=== PATIENT | female | born 2000 | race Caucasian/White ===

== ENCOUNTER 2024-03-30 04:57 | Inpatient (IN) | payer BC, SELFPAY ==
[2024-03-30] VITALS (97 sets, daily range): BP systolic 74–211; BP diastolic 46–189; PULSE 72–291; RESP 14–17; TEMP 36.5–37.2; O2SAT 93–100; BMI 37.8
--- OUTSIDE RECORDS SUMMARY | 2024-03-30 05:02 | XMS_ITS | Continuity of Care Document ---
Author Organization [facility] Address [address] [place] [address] [place] [address] Phone Care Team Providers Care Envelope Fold Operator Name Role Phone Musa Ovalles MD Unavailable Unavailable Allergies, Adverse Reactions, Alerts Substance Reaction Status Criticality No Known Allergies Active No Inform ation Procedures Procedure Date PREV VISIT, NEW, AGE 18-39 Advance Directives Directive Yes / No Effective Date File Name No Information Encounters Encounter Description Practice Location Reason(s) For Visit Diagnoses Date Provider Providers Copied on Encounter [facility], [address] [place], [id number], tel:[phone] [facility] No Information Josr Vigil. [address] [place], [id number], . tel:[phone] PREV VISIT, NEW, AGE 18-39 [facility], [address] [place], [id number], tel:[phone] [facility] physical (chief complaint) Encounter for general adult medical examination without abnormal findings [facility]igil. [address] [facility] [place], [id number], [place]. tel:[phone] Family History Family Member Type Diagnosis Age At Onset Sister Problem PCOS Mother Problem Alive and well Father Problem Alive and well Payers Payer name Insurance type Covered democrat ID Authoriza tion(s) No Information Social History Type Description Quantity Date Captured Comments Alcohol Use Details Unknown Caffeine Use Details Unknown Tobacco Use Status No Information Smoking Status No Information Sex Female Chief Complaint And Reason For Visit No Information Plan Of Treatment Date Type Action Status No Information History Of Present Illness Encounter Date Complaint History Of Prese nt Illness physical Pt needs annual physical. Pt notices some morning nausea and also nausea throughout the day with food without vomiting, worsening with fatigue for about one month. Pt has history of irregular period. Pt missed period for several days and she did home test which were positive x 3. Pt denies any abd pain or bleeding. Pt called and made tara with OB and her appointment is on 02/11/22. Instructions Date Instruction Additional Infor mation No Information Assessments Type Assessment Date No Information
--- OUTSIDE RECORDS SUMMARY | 2024-03-30 05:02 | XMS_ITS | Patient Health Summary ---
Author Organization [facility] Address [address] [place] [address] Care Team Providers Care Lath Hand Name Role Phone Unavailable Primary Care Provider Unavailabl e Note from Formerly named [facility],non-owned Affiliates and Associated Physician Practices is amultiple site organization consisting of ambulatory clinics and hospital sitesin [place], [place], [place] and [place]. This disclosure is being madepursuant to the Care Everywhere program and may not contain all information available regarding this patient. Last updated 17.[facility] [employer] Allergies No known active allergies Social History Tobacco Use Types Packs/Day Years Used Date Smoking Tobacco: Never Assessed Estimated Date of Delivery Comme nts Yes 03/30/2024 Based on last me nstrual period of 06/24/2023 Sex and Gender Information Value Date Recorded Sex Assigned at Not on file Gender Identity Not on file Sexual Orientation Not on file Last Filed Vital Signs Vital Sign Reading Time Taken Comments Blood Pressure 107/67 03/15/2024 10:21 AM DYNAMIC BALANCER SET UP WORKER Pulse 82 03/15/2024 10:21 AM DYNAMIC BALANCER SET UP WORKER Temperature - - Respiratory Rate 16 02/09/2024 10:17 AM DYNAMIC BALANCER SET UP WORKER Oxygen Saturation - - Inhaled Oxygen Concentration - - Weight - - Height - - Body Mass Index - - Procedures * BIOPHYSICAL PROFILE W NST(Performed 03/15/2024) Performed for Poor growth affecting management of mother in second trimester, single or unspecified fetus (HCC), Encounter for ultrasound to assess growth (HCC), 32 weeks gestation of (HCC), Encounter for screening ([facility]) * BIOPHYSICAL PROFILE W NST(Performed 03/08/2024) Performed for Poor growth affecting management of mother in second trimester, single or unspecified fetus (HCC), Encounter for ultrasound to assess growth (HCC), 32 weeks gestation of (HCC), Encounter for screening ([facility]) * BIOPHYSICAL PROFILE W NST(Performed 03/01/2024) Performed for Poor growth affecting management of mother in second trimester, single or unspecified fetus (HCC), Encounter for ultrasound to assess growth (HCC), 32 weeks gestation of (HCC), Encounter for screening (HCC) * BIOPHYSICAL PROFILE W NST(Performed 02/23/2024) Performed for Poor growth affecting management of mother in second trimester, single or unspecified fetus (HCC), Encounter for ultrasound to assess growth (HCC), 32 weeks gestation of (HCC), Encounter for screening (HCC) * BIOPHYSICAL PROFILE W NST(Performed 02/16/2024) Performed for Poor growth affecting management of mother in second trimester, single or unspecified fetus (HCC), Encounter for ultrasound to assess growth (HCC), 32 weeks gestation of (HCC), Encounter for screening (HCC) * BIOPHYSICAL PROFILE W NST(Performed 02/09/2024) Performed for Poor growth affecting management of mother in second trimester, single or unspecified fetus (HCC), Encounter for ultrasound to assess growth (HCC), 32 weeks gestation of (HCC), Encounter for screening (HCC) * SONOGRAM - COMPLETE(Performed 02/02/2024) Performed for Poor growth affecting management of mother in second trimester, single or unspecified fetus (HCC), Encounter for ultrasound to assess growth (HCC), 32 weeks gestation of (HCC) * SONOGRAM - COMPLETE(Performed 01/08/2024) Performed for Poor growth affecting management of mother in second trimester, single or unspecified fetus (HCC), Encounter for follow-up ultrasound of anatomy (HCC), Encounter for ultrasound to assess growth (HCC), 28 weeks gestation of (HCC) * SONOGRAM - COMPLETE(Performed 12/15/2023) Performed for Poor growth affecting management of mother in first trimester, single or unspecified fetus (HCC), Encounter for follow-up ultrasound of anatomy (HCC), Encounter for ultrasound to assess growth (HCC), 24 weeks gestation of (HCC) * SONOGRAM - COMPLETE(Performed 11/24/2023) Performed for Encounter for anatomic survey (HCC), Poor growth affecting management of mother in first trimester, single or unspecified fetus (HCC) Results * BIOPHYSICAL PROFILE W NST (03/15/2024 10:44 AM DYNAMIC BALANCER SET UP WORKER) Only the most recent of6 resultswithin the time period is included. Linked Results Indication ======== SGA/ growth restriction Obesity, Class II History ====== OB History 2. Para 1 [id number] Lab Tests Test Date Result NIPT Low risk Maternal Assessment = Physical Exam Height 152 cm, 5 ft 0 in. Weight 87 kg, 191 lb. Initial weight 87 kg, 191 lb. BMI 37.30 kg/m . Initial BMI 37.30 kg/m . Weight gain 0 kg, 0 lb Method ====== Transabdominal ultrasound examination. View: Sufficient ========= Lucas . Number of fetuses: 1 Dating ====== Date Details Gest. age BRANDEN LMP 06/24/2023 37 w + 6 d 03/30/2024 Stated BRANDEN 37 w + 6 d 03/30/2024 Previous U/S 09/05/2023 GA, GA 9 w + 5 d 37 w + 1 d 04/04/2024 Assigned dating based on the LMP, selected on 02/02/2024 37 w + 6 d 03/30/2024 General Evaluation Cardiac activity present. FHR 142 bpm. Presentation: cephalic Placenta: Placental site: anterior Amniotic Fluid Assessment ===== Amount of AF: normal MVP 5.7 cm. KAROLINE 15.3 cm. Q1 5.7 cm, Q2 2.5 cm, Q3 4.5 cm, Q4 2.7 cm Biophysical Profile 2: breathing movements 2: Gross body movements 2: tone 2: Amniotic fluid volume NST: reactive 10/10 Biophysical profile score Non Stress Test NST interpretation: reactive. Baseline FHR 135 bpm. Baseline variability: moderate. Accelerations: present. Decelerations: absent Biometry BPD 85.7 mm 34w 4d 3% Hadlock HC 322.8 mm 36w 3d 7% Hadlock AC 327.0 mm 36w 4d 31% Hadlock Femur 68.4 mm 35w 1d 4% Hadlock Humerus 55.6 mm 32w 2d <1% Desirae HC / AC 0.99 Weight Calculation: EFW 2,821 g 18% Hadlock EFW (lb,oz) 6 lb 4 oz EFW by Hadlock ([id number]) appropriate Growth Overview = Exam date GA BPD (mm) HC (mm) AC (mm) FL (mm) HL (mm) EFW (g) 12/15/2023 24w 6d 57.6 8% 219.8 8% 191 14% 43.9 24% 40.9 37% 657 14% 01/08/2024 28w 2d 68 13% 256.2 10% 230.9 19% 51.7 18% 47.5 33% 1089 16% 02/02/2024 31w 6d 76.5 12% 292.1 22% 256.3 5% 58.2 8% 48.8 <1% 1548 7% 02/23/2024 34w 6d 82.2 9% 315.4 29% 287.9 8% 64.3 8% 55.5 8% 2142 11% 03/15/2024 37w 6d 85.7 3% 322.8 7% 327 31% 68.4 4% 55.6 <1% 2821 18% Anatomy The following structures appear normal: Abdomen Stomach. Kidneys. Bladder. sex: female. Impression ========= Single live intrauterine at 37w 6d in cephalic presentation The BRANDEN is 03/30/2024 Fetus measuring appropriate for established gestational age (EFW 18%, AC 31%) The amniotic fluid volume appears normal Biophysical profile: 11/15 Follow-up ======== No need for weekly testing with resolved FGR. Resume regular PNC with referring provider. Coding ====== Procedures 34284: [place] [address]: Biophysical Profile W NST [facility] [employer] PACS Anatomical Region Laterality Modality Other 03/15/2024 10:4 4 AM DYNAMIC BALANCER SET UP WORKER R Ronak Shepard MD [facility] ORDERABLES * SONOGRAM - COMPLETE (02/02/2024 11:14 AM DYNAMIC BALANCER SET UP WORKER) Only the most recent of4 resultswithin the time period is included. Linked Results Addendum ========= First trimester US added to dating Indication ======== Completed anatomy Obesity, Class II History ====== OB History 2. Para 1 [id number] Lab Tests Test Date Result NIPT Low risk Maternal Assessment = Physical Exam Height 152 cm, 5 ft 0 in. Initial weight 87 kg, 191 lb. Initial BMI 37.30 kg/m Method ====== Transabdominal ultrasound examination. View: Sufficient ========= Lucas . Number of fetuses: 1 Dating ====== Date Details Gest. age BRANDEN LMP 06/24/2023 31 w + 6 d 03/30/2024 Stated BRANDEN 31 w + 6 d 03/30/2024 Previous U/S 09/05/2023 GA, GA 9 w + 5 d 31 w + 1 d 04/04/2024 Assigned dating based on the LMP, selected on 02/02/2024 31 w + 6 d 03/30/2024 General Evaluation Cardiac activity present. FHR 141 bpm. Presentation: cephalic Placenta: Placental site: anterior Amniotic Fluid Assessment ===== Amount of AF: normal MVP 4.2 cm. KAROLINE 14.5 cm. Q1 3.6 cm, Q2 3.2 cm, Q3 4.2 cm, Q4 3.5 cm Biophysical Profile 2: breathing movements 2: Gross body movements 2: tone 2: Amniotic fluid volume 09/13 Biophysical profile score Biometry BPD 76.5 mm 30w 5d 12% Hadlock HC 292.1 mm 32w 1d 22% Hadlock AC 256.3 mm 29w 6d 5% Hadlock Femur 58.2 mm 30w 3d 8% Hadlock Humerus 48.8 mm 28w 5d <1% Desirae HC / AC 1.14 Weight Calculation: EFW 1,548 g 7% Hadlock EFW (lb,oz) 3 lb 7 oz EFW by Hadlock ([id number]) SGA Growth Overview = Exam date GA BPD (mm) HC (mm) AC (mm) FL (mm) HL (mm) EFW (g) 12/15/2023 24w 6d 57.6 8% 219.8 8% 191 14% 43.9 24% 40.9 37% 657 14% 01/08/2024 28w 2d 68 13% 256.2 10% 230.9 19% 51.7 18% 47.5 33% 1089 16% 02/02/2024 31w 6d 76.5 12% 292.1 22% 256.3 5% 58.2 8% 48.8 <1% 1548 7% Anatomy The following structures appear normal: Abdomen Stomach. Kidneys. Bladder. sex: female. Doppler Umbilical Artery: abnormal, consistent with increased placental resistance PI 1.34 98% Anna S / D 4.34 99% Anna Mid Cerebral Artery: normal PI 2.24 59% Ebbing PS 45.36 cm/s PS 1.03 MoM CPR PI 1.67 6% Ebbing Impression ========= Single, live intrauterine at 31w 6d Amniotic fluid volume: normal size is SGA for the gestational age, with EFW at the 7th percentile. - Interval growth is demonstrated. Biophysical profile: 09/13 Umbilical Artery Doppler is elevated, with diastolic flow in all submitted waveforms. MCA Doppler appears normal Follow-up ======== Follow up ultrasound in 1 week for weekly NST, biophysical profile and Doppler assessment is recommended. Growth ultrasound in 3 weeks. Close surveillance for hypertension. Coding ====== Procedures 92316: [place] [id number]: Biophysical Profile W NST 99421: Umbilical Doppler 65942: MCA Doppler [employer] PACS Anatomical Region Laterality Modality Other 02/02/2024 11:1 4 AM DYNAMIC BALANCER SET UP WORKER R Ronak Shepard MD [facility] ORDERABLES
--- OUTSIDE RECORDS SUMMARY | 2024-03-30 05:02 | XMS_ITS | Data Portability ---
Author Organization [facility] [place] Address [address] [place] [address] Care Team Providers Care Aviation Project Manager Name Role Phone NATHAN HOLLINGSWORTH Primary Care Provider Assessment Encounter Date Assessment Date Assessment LastModified by Organization Details LastModified Time 03/01/2024 03/01/2024 Patient is ___weeks . Discussed plan. Not available 03/01/2024 14:17:58 03/08/2024 03/08/2024 Patient is ___weeks . Discussed plan. Not available 03/08/2024 16:37:12 03/15/2024 03/15/2024 Patient is ___weeks . Discussed plan. Not available 03/15/2024 16:34:17 03/29/2024 03/29/2024 Patient is ___weeks . Discussed plan. Not available 03/29/2024 16:25:20 Plan of Treatment Reminders Order Date Submit Date Provider Last Modified By Organization Details Last Modified Time Details Appointments INDUCTION 2024 05:00A Rolan SHEPARD MD Not available Not available Not available Lab None recorded. Referral None recorded. Procedures None recorded. Surgeries None recorded. Imaging None recorded. Medication Orders None recorded. Patient TargetsNo targets recorded. Patient InstructionsNo instructions recorded. Reason for Referral None Reported. Results Created Date Observation Date Name Description Value Unit Range Abnormal Flag Note LastModifiedBy Organization Detail LastModifiedTime 03/01/19 25 03/01/2024 CULTU RE: GROUP B STREP SCREE N, REFLE X SUSCE PTIBI LITY result report SEE RESULT S BELOW abnormal Test: Cultu re: Group B Strep , Refle x Susce ptibi lity ([facility]/ [facility]/K [facility] ) Speci men Sourc e: Vagin a/Rec kelin Speci men Type: Vagin al/Re ctal Speci men Date: 2024 1543 Resul t Date: 2024 1457 Resul t Statu s: Final resul t Abnor mal: Yes Resul ting Lab: [facility] [address] [facility] [address] [address] [facility] [address] Tel: [phone] CULTU RE ----- ----- ----- --- Light Growt h Strep tococ cus agala ctiae (Grou p B) (Abno rmal) Clind amyci n = resis tant, eryth romyc in = resis tant. Cefaz israel may be used for intra partu m proph ylaxi s in penic illin -silvia rgic women at low risk, and Vanco mycin is recom roly d for women at high risk for anaph ylaxi s. Susce ptibi lity testi ng is not neces gómez for these drugs . Not Available [facility] (Lab) [address], [place], [address], 03/06/2024 16:00:18 02/02/20 24 02/02/2024 US, obste tric, follo w-up No observ ation record ed. [place] [address], [place], [address], 02/05/2024 12:09:30 02/02/20 24 02/02/2024 US, obste tric, follo w-up No observ ation record ed. [email or web address] [facility] [place], [address], 02/08/2024 18:15:58 02/05/20 24 02/02/2024 US, obste tric, follo w-up No observ ation record ed. [email or web address] [place] [address], [place], [address], 02/05/2024 21:38:57 02/08/19 25 02/09/2024 US, obste tric, bioph ysica l profi le + non-s tress test No observ ation record ed. [email or web address] [place] [address], [place], [address], 02/14/2024 16:33:55 02/08/19 25 02/09/2024 US, obste tric, follo w-up No observ ation record ed. [email or web address] [place] [address], [place], [address], 02/14/2024 09:13:01 02/15/19 25 02/16/2024 US, obste tric, follo w-up No observ ation record ed. [email or web address] [place] [address], [place], [address], 02/19/2024 18:14:53 02/18/19 25 02/16/2024 US, obste tric, follo w-up No observ ation record ed. [email or web address] [facility] [address] [place] [address], [address], 02/20/2024 09:23:47 02/22/19 25 02/23/2024 US, obste tric, bioph ysica l profi le + non-s tress test No observ ation record ed. [address] [facility] [address] [place] [address], [address], 02/26/2024 11:42:29 02/22/19 25 02/23/2024 US, obste tric, follo w-up No observ ation record ed. [address] [facility] [address] [place] [address], [address], 02/26/2024 11:43:12 03/01/19 25 03/01/2024 US, obste tric, bioph ysica l profi le + non-s tress test No observ ation record ed. [address] [facility] [address], [address], 03/05/2024 10:12:49 03/01/19 25 03/01/2024 US, obste tric, follo w-up No observ ation record ed. [email or web address] [address], [place], [address], 03/06/2024 22:46:08 03/08/19 25 03/08/2024 US, obste tric, bioph ysica l profi le + non-s tress test No observ ation record ed. [address], [address], 03/12/2024 12:16:39 03/08/19 25 03/08/2024 US, obste tric, follo w-up No observ ation record ed. [email or web address] [facility] [address], [address], 03/12/2024 19:09:39 03/15/19 25 03/15/2024 US, obste tric, bioph ysica l profi le + non-s tress test No observ ation record ed. [address] [facility] [address], [address], 03/18/2024 12:33:41 03/15/19 25 12/15/2023 US, obste tric, follo w-up No observ ation record ed. [email or web address] [address], [address], 03/18/2024 23:11:18 Result Notes None recorded. Problems Name Problem SNOMED Code Status Onset Date Resolution Date Notes Provider Name and Address Organization Details Recorded Time Pregnanc y 09438405 Completed 202209/02/2022 Debra Delgado null, [facility] 4 15:39:48 Rubella non-immu ne 087861949 Completed Sheree Clark null, [facility] 3 13:46:23 Polycyst ic ovary syndrome 940702679 Completed Sheree Clark null, [facility] 3 13:46:23 Pregnanc y 22916719 Active 2023 Debra Delgado null, [facility] 4 15:39:48 Polycyst ic ovary syndrome 919881071 [facility], [facility] 4 15:05:22 Obesity 590065457 Active 2023 37wk weekly antenata l testing Sheree Clark null, [facility] 4 15:06:13 Pneumoni a 908933902 Active 2023 Donna Douglas er null, [facility] 4 13:58:40 Pneumoni a 383523280 Active 2023 Donna Douglas er null, [facility] 4 14:03:52 growth restrict ion 82638689 Active [facility] on January 08, 2024 Dale Shepard MD [address], [place], [address], [facility] 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 15:27:33 Problem Notes None recorded. Procedures Surgical History Date Name Laterality Status Provider Name and Address Organization Details Recorded Time 04/28/19 24 Date of Last Pap Smear completed Debra Delgado [facility] 09/18/2023 15:39:15 02/06/19 06 Tonsillectomy completed Ruth Dugan [facility] 02/11/2022 18:07:12 Imaging Results Imaging Date Name Status LastModified by Organiz ation Details LastModified Time 02/02/2024 US, obstetric, follow-up completed [email or web address] [place] [address], [place], [address], 02/05/2024 12:09:30 02/02/2024 US, obstetric, follow-up completed [facility] [place] [address], [place], [address], 02/08/2024 18:15:58 02/02/2024 US, obstetric, follow-up completed [email or web address] [place] [address], [place], [address], 02/05/2024 21:38:57 02/09/2024 US, obstetric, biophysical profile + non-stress test completed [email or web address] [place] [address], [place], [address], 02/14/2024 16:33:55 02/09/2024 US, obstetric, follow-up completed [email or web address] [facility] [address], [place], [address], 02/14/2024 09:13:01 02/16/2024 US, obstetric, follow-up completed [facility] [address], [place], [address], 02/19/2024 18:14:53 02/16/2024 US, obstetric, follow-up completed [email or web address] [facility] [address] [place] [address], [address], 02/20/2024 09:23:47 02/23/2024 US, obstetric, biophysical profile + non-stress test completed [email or web address] [facility] [address], [address], 02/26/2024 11:42:29 02/23/2024 US, obstetric, follow-up completed [facility] [address], [address], 02/26/2024 11:43:12 03/01/2024 US, obstetric, biophysical profile + non-stress test completed [email or web address] [facility] [address], [address], 03/05/2024 10:12:49 03/01/2024 US, obstetric, follow-up completed [email or web address] [address], [address], 03/06/2024 22:46:08 03/08/2024 US, obstetric, biophysical profile + non-stress test completed [email or web address] [facility] [address], [address], 03/12/2024 12:16:39 03/08/2024 US, obstetric, follow-up completed [email or web address] [facility] [address], [address], 03/12/2024 19:09:39 03/15/2024 US, obstetric, biophysical profile + non-stress test completed [facility] [address], [address], 03/18/2024 12:33:41 12/15/2023 US, obstetric, follow-up completed [email or web address] [facility] [address] [place], [address], 03/18/2024 23:11:18 Procedure Notes None recorded. Medical Equipment None Reported. Allergies No known drug allergies Medications Name Sig Start Date Stop Date Status Note LastModified by Organization Details LastModified Time amoxicillin 875 mg tablet TAKE 1 TABLET BY MOUTH EVERY 12 HOURS FOR 10 DAYS 11/16 completed Not Available Not Available Not Available ondansetron 4 mg disintegrat ing tablet DISSOLVE 1 TABLET ON THE TONGUE EVERY 4 TO 6 HOURS NEEDED 04/27 completed Not Available Not Available Not Available 02/25 (28) 1 mg-20 mcg (21)/75 mg (7) tablet TAKE 1 TABLET BY MOUTH EVERY DAY 09/04 completed Not Available Not Available Not Available active Not Available Not Avai lable Not Available Zyrtec active Not Available Not Availa ble Not Available Robitussin Cough and Cold CF active Not Available Not Available Not Available Vitals Date Recorded Body height Body mass index (BMI) Body weight Systolic blood pressure Diastolic blood pressure Provider Name and Address Organization Details Last Updated DateTime 03/01/2024 152.4 cm 38.3 kg/m2 05221.1 g 132 mm[Hg] 77 mm[Hg] [facility] 14:19:03 Date Recorded Body height Body mass index (BMI) Body weight Systolic blood pressure Diastolic blood pressure Provider Name and Address Organization Details Last Updated DateTime 03/08/2024 152.4 cm 37.5 kg/m2 77623.74 g 112 mm[Hg] 70 mm[Hg] [facility] 16:38:58 Date Recorded Body weight Systolic blood pressure Diastolic blood pressure Provider Name and Address Organization Details Last Updated DateTime 03/15/2024 97978.7350 4 g 111 mm[Hg] 71 mm[Hg] [facility] 03/15/2024 16:35:07 Date Recorded Body height Body mass index (BMI) Body weight Systolic blood pressure Diastolic blood pressure Provider Name and Address Organization Details Last Updated DateTime 03/18/2024 152.4 cm 38.1 kg/m2 36218.51 g 116 mm[Hg] 73 mm[Hg] Rin Saini [facility] 15:13:20 Date Recorded Body weight Systolic blood pressure Diastolic blood pressure Provider Name and Address Organization Details Last Updated DateTime 03/29/2024 27688.3274 1 g 128 mm[Hg] 74 mm[Hg] Debra Danny [facility] 03/29/2024 16:25:55 Social History Question Answer Notes LastModified by Organizat ion Details LastModified Time Tobacco Smoking Status Never Smoker Maria L Chaparro liz, [facility] 09/29/2022 10:33:26 What Is Your Level Of Alcohol Consumption? None [email or web address] Information not available 02/11/2022 If You Are , What Was Your Level Of Alcohol Consumption Prior To ? Occasional [email or web address] Information not available 09/29/2022 Are You Blind Or Do You Have Difficulty Seeing? No [email or web address] Information not available 02/11/2022 What Is Your Level Of Caffeine Consumption? Occasional [email or web address] Information not available 02/11/2022 How Much Tobacco Do You Chew? None Information not available 04/27/2022 In The 14 Days Before Symptom Onset, Have You Had Close Contact With A Laboratory-confir med COVID-19 While That Case Was Ill? No [email or web address] Information not available 02/11/2022 In The 14 Days Before Symptom Onset, Have You Had Close Contact With A Person Who Is Under Investigation For COVID-19 While That Person Was Ill? No [email or web address] Information not available 02/11/2022 Have You Been To An Area Known To Be High Risk For COVID-19? No [email or web address] Information not available 02/11/2022 Are You Deaf Or Do You Have Serious Difficulty Hearing? No [email or web address] Information not available 02/11/2022 What Type Of Diet Are You Following? REGULAR [email or web address] Information not available 02/11/2022 Do You Or Have You Ever Used E-cigarettes Or Vape? Former User Of Electronic Cigarettes [email or web address] Information not available 09/29/2022 What Is The Highest Grade Or Level Of School You Have Completed Or The Highest Degree You Have Received? 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 No Information not available 04/27/2022 Do You Use Protection During Sex? No Information not available 04/27/2022 Do You Use Your Seat Belt Or Car Seat Routinely? Yes [email or web address] Information not available 02/11/2022 Do You Have Smoke And Carbon Monoxide Detectors In Your Home? Yes [email or web address] Information not available 02/11/2022 How Much Tobacco Do You Smoke? No Information not available 04/27/2022 Do You Feel Stressed (tense, Restless, Nervous, Or Anxious, Or Unable To Sleep At Night)? [id number] [email or web address] Information not available 02/11/2022 Do You Use Any Illicit Or Recreational Drugs? No [email or web address] Information not available 02/11/2022 Do You Use Sunscreen Routinely? Yes Information not available 02/11/2022 Has Tobacco Cessation Counseling Been Provided? No [email or web address] Information not available 09/29/2022 Have You Used IV Drugs? No Information not available 04/27/2022 Do You Or Have You Ever Used Any Other Forms Of Tobacco Or Nicotine? Yes [email or web address] Information not available 09/29/2022 Sex: Unknown Functional Status Question Answer Note LastModified by Organizat ion Details LastModified Time Do you have difficulty walking or climbing stairs? No [email or web address] Information not available 09/29/2022 Are you able to walk? YESWOREST [email or web address] Information not available 02/11/2022 Are you able to care for yourself? Yes [email or web address] Information not available 09/29/2022 Do you have difficulty dressing or bathing? No [email or web address] Information not available 09/29/2022 What is your exercise level? Occasional [email or web address] Information not available 02/11/2022 Mental Status None recorded. Family History Relationship Description Onset Age of this Age Resolved Age Notes LastModified by Organization Details LastModified Time Sister Cyst of ovary [email or web address] Not available 02/11 18:05:56 Sister Polycystic ovary syndrome Not available 02/11 18:06:07 Medical History Condition Response Allergies (Food, seasonal, environmental ) Y Other N Drug/Latex Allergies/Reactions N Blood Transfusion N Breast Cancer N Dermatologic Disorders N Lung Disease N Defects or Inherited Disease N Breast Problem N Gestational Diabetes N Hematologic disorders N Anesthesia Complications N History of STI N Deep Vein Thrombosis N Polycystic ovary syndrome Y Anxiety Disorder N Autoimmune disease N Arthritis N Polyps N Infertility N Acid Reflux (GERD) N History of abnormal pap N Cancer N Varicosities N Stroke N Neurologic/Epilepsy N Endometriosis N High Cholesterol N Fibromyalgia N Headaches N Kidney Disease N Heart Problems N Thyroid Problems N Kidney or Bladder Problems N GI Problems N Eating Disorder N Anemia N Art (IVF or FET) N Psychiatric Illness N Ovarian Cancer N Diabetes N Pulmonary (TB, Asthma) N Hepatitis/Liver Disease N No Past Medical History N Eczema N Urinary Tract Infection N Abuse/Domestic Violence N Asthma N Trauma/Violence N Depression/ depression N Heart Disease N Pre-Eclampsia N Hypertension N Osteoporosis N Thrombophilias N Gynecological History Statement/Question Response Abnormal Pap N Flow Moderate Date of Last Mammogram Date of LMP 06/24/2023 Was last menstrual period normal Y STIs/STDs N HPV Vaccine N Current Control Method Are cycles usually normal Y Sexually Active? Y Menses Monthly Y Date of DEXA bone scan Age of first menstrual cycle 9 Date of Last Pap Smear 04/28/2023 Sexual Problems? N LMP Definite Obstetrics History GPAL:G 2 P 1 0 0 1 Type Value Full Term 1 Living 1 Total 2 Past Encounters Encounter ID Performer Location Encounter Start Date Encounter Closed Date Diagnosis/Indication Diagnosis SNOMED-CT Code Diagnosis ICD10 Code Diagnosis Note [id number] Isis Ryan [place] [address] [address] 02/11/2022 15:57:33 02/11/2022 16:38:16 Uncertain viability of 787506520 O36.80X0 Z3A.11 [id number] Maile Villa CNM [place] [address] [address] 02/11/2022 15:57:47 02/14/2022 17:05:03 Amenorrhea 23774707 N91.2 Gynecologi c examination 95850781 Z01.419 [id number] Isis Ryan [place] [address],[place] [address] 02/17/2022 12:21:28 02/17/2022 14:17:55 screening 081430499 Z36.82 [id number] Elizabet Rainey MD [place] [address],[place] [address] 02/25/2022 10:59:54 03/02/2022 15:30:47 Routine care 939447279 Z34.91 [id number] Elizabet Rainey MD [place] [address],[place] [address] 03/25/2022 11:37:17 03/25/2022 12:32:57 Routine care 554056417 Z34.91 [id number] [facility] [address],[place] [address] 04/27/2022 14:20:13 04/27/2022 15:32:38 screening for malformation 691357379 Z36.3 [id number] Dale Shepard MD [place] [address],[place] [address] 04/27/2022 14:20:39 04/27/2022 16:35:12 Routine care 689552431 Z34.02 [id number] Isis Ryan [place] [address],[place] [address] 05/26/2022 11:26:03 05/26/2022 12:51:47 screening 238938983 Z36.2 Z3A.26 [id number] Dale Shepard MD [place] [address],[place] [address] 05/26/2022 11:27:54 05/26/2022 14:45:37 Routine care 648185392 Z34.02 [id number] Dale Shepard MD [place] [address],[place] [address] 06/09/2022 10:12:23 06/09/2022 10:52:55 Routine care 774115877 Z34.02 [id number] Maile Villa [facility] [address],[place] [address] 06/22/2022 15:48:02 06/22/2022 16:08:21 Routine care 807192776 Z34.93 [id number] Maile Villa [facility] [address],[place] [address] 07/08/2022 11:37:56 07/08/2022 12:22:00 Routine care 149055963 Z34.93 [id number] Isis Ryan [place] [address],[place] [address] 07/22/2022 11:47:30 07/22/2022 14:34:06 Uterine size for dates discrepancy 674397428 O26.849 Z3A.34 [id number] Dale Shepard MD [place] [address],[place] [address] 07/22/2022 11:48:43 07/23/2022 11:52:58 [id number] Dale Shepard MD [place] [address],[place] [address] 08/04/2022 09:41:19 08/04/2022 10:49:13 Routine care 136265040 Z34.02 [id number] Dale Shepard MD [place] [address],[place] [address] 08/11/2022 09:24:49 08/11/2022 11:17:36 Routine care 725105756 Z34.02 [id number] MD Aleida Humphreys [address],[place] [address] 08/18/2022 12:36:04 08/18/2022 13:45:18 Routine care 842019057 Z34.02 [id number] MD Aleida Humphreys [address],[place] [address] 08/25/2022 14:19:48 08/25/2022 14:47:14 Routine care 108352134 Z34.02 [id number] Dale Shepard MD [place] [address],[place] [address] 09/29/2022 10:33:20 09/29/2022 11:11:07 state 74149057 Z39.2 21-year-ol d who presents for follow-up. She has no complaints . Her baby is doing well. Her mood is reasonably good. Her bleeding has stopped. They have not had sex she is bottle-fee ding and wants to start oral contracept lea pills. She was given a prescripti on and instructio ns. She will follow-up 2 months for well-woman exam. [id number] Dale Shepard MD [place] [address],[place] [address] 04/28/2023 15:00:43 04/28/2023 17:03:32 Gynecologic examination 90541637 Z01.419 Z11.3 Z11.8 Annual gynecologi vincent exam performed. Patient will come back in a year unless there are new symptoms. Suggest Calcium with Vitamin D if not eating in diet. Patient advised to get annual flu shot. Recommend yearly physicals and preform monthly breast exams. Genetic testing is available for patients with family history of cancer. Engage in safe sexual practices, use condoms. Encouraged to have daily exercise. Avoid tobacco and illicit drugs, moderation of alcohol. If BMI greater than 25 dietary consult advised. If you have any questions please call or email. [id number] Elsa To [place] [address],[place] [address] 09/05/2023 09:58:36 09/05/2023 10:36:57 [id number] GUZMAN HALL MD [place] [address],[place] [address] 09/05/2023 09:59:38 09/05/2023 11:01:48 test positive 770674214 Z32.01 1. Exam today within normal limits.2. Ultrasound today confirms GA and viability. EDC . GC/Clamydi a testing done: will f/u as indicated. Pap smear up to date.4. ACOG guidelines and plan of care for reviewed with patient. All questions answered.5 . Return to office at 12 weeks for new OB visit6. Will need new OB labs at next visit.7. Genetic screening: desires, will draw today. [facility] [address],[place] [address] 09/18/2023 14:37:03 09/18/2023 15:27:53 screening 126745403 Z36.82 Z3A.12 Dale Shepard MD [place] [address],[place] [address] 09/18/2023 14:37:27 09/18/2023 16:21:08 Gestation period, 12 weeks 75891482 Z3A.12 Routine an tenatal care 041534470 Z34.02 [id number] Dale Shepard MD [place] [address],[place] [address] 10/16/2023 10:07:33 10/16/2023 11:29:37 Routine care 634574645 Z34.02 [id number] [facility] [address],[place] [address] 11/17/2023 08:57:25 11/17/2023 10:13:27 screening for malformation 835261699 Z36.3 Z3A.20 [id number] Dale Shepard MD [place] [address],[place] [address] 11/17/2023 08:58:33 11/17/2023 11:50:01 Routine care 585369603 Z34.02 [id number] MD Aleida Humphreys [address],[place] [address] 12/13/2023 17:14:01 12/14/2023 10:53:56 Routine care 943854599 Z34.02 [id number] MD Aleida Humphreys [address],[place] [address] 01/08/2024 16:48:44 01/08/2024 17:28:50 Routine care 531128072 Z34.02 [id number] MD Aleida Humphreys [address],[place] [address] 01/26/2024 15:50:07 01/26/2024 17:13:00 Routine care 817568374 Z34.02 [id number] MD Aleida Humphreys [address],[place] [address] 02/09/2024 15:27:54 02/09/2024 17:00:05 Routine care 183125762 Z34.02 [id number] MD Aleida Humphreys [address],[place] [address] 02/23/2024 14:13:38 02/23/2024 15:07:26 Routine care 748842192 Z34.02 [id number] Dale Shepard MD [place] [address],[place] [address] 03/01/2024 13:52:48 03/01/2024 15:36:16 Routine care 576605259 Z34.02 [id number] Dale Shepard MD [place] [address],[place] [address] 03/08/2024 16:05:13 03/11/2024 07:40:49 Routine care 489755133 Z34.02 [id number] Dale Shepard MD [place] [address],[place] [address] 03/15/2024 15:47:27 03/18/2024 11:44:44 Routine care 033426791 Z34.02 [id number] GUZMAN HALL MD [place] [address],[place] [address] 03/18/2024 15:07:11 03/18/2024 15:24:19 Routine care 000490255 Z34.83 [id number] Dale Shepard MD [place] [address] [address] 03/29/2024 15:34:54 03/29/2024 17:01:01 Routine care 296821628 Z34.02 Health Concerns Section Related Observation LastModified by Organization Detai ls LastModified Time None Recorded Concern Status LastModified by Organization Details LastModified Time None Recorded Advance Directives Directive None Recorded Payers Encounter Date Sequence Insurance Name Policy Number Policy Maldonado Covered Member ID Maldonado Member ID Guarantor Name 03/01/2024 1 [place] [id number] J José Luis J Glauber [id number] José Luis Glauber 03/08/2024 1 [place] [id number] J José Luis J Glauber [id number] 15 José Luis Glauber 03/15/2024 1 [place]) [id number] J José Luis J Glauber [id number] 15 José Luis Glauber 03/18/2024 1 [place]) [id number] J José Luis J Glauber [id number] 15 José Luis Glauber 03/29/2024 1 [place] [id number] J José Luis Del Glauber [id number] 15 José Luis Glauber OBGyn Episode Ob Episode Information Episode Created Date Number of Fetuses Patient Bloodtype Patient rh Status Prepregnancy Weight lbs Domestic Partner Domestic Partner Phone Father Name [employer]ator [employer] Status 02/25/19 23 1 A Positive 167 Berny Iqbal [phone] Berny Iqbal CLOSED Fetus Data First Name Last Name Admitted to NICU Weight (g) Sex Living Outcome Pediatric Complications Fetus ID Race Codes Race Delivery Type 3316.89 15 M true Full Term [id number] Vaginal Delivery Problems Problem Notes does not plan circumcision Problem Name Start Date End Date Resolution Snomed Code Not e Rubella non-immune [id number] Polycystic ovary syndrome [id number] Tito Calculation Initial Tito Date Initial Exam Date Initial Exam Provider Initial Ultrasound Date Last Menstrual Period Date Ultra Sound Weeks Gestation 08/30/2022 02/25/2022 02/11/2022 11/23/2021 11 Eighteen To Twenty Week Tito Update Ultra Sound Date Fundal Height At Umbil Quickening Date Ultra Sound Latest Weeks Gestation Final Tito Confirmed By Final Tito Confirmed Date Final Tito Date Ultra Sound Latest Days Gestation 0 [email or web address] 02/25/2022 08/31/19 23 0 Pre-ketan Flowsheet Flowsheet Date 02/25/2022 Hopkins Score Blood Edema Fundus Height Fundus Units Glucose Ketones Leukocytes Nitrite Labor Signs Protein Cervic Dilation Cervic Effacement Cervic Station neg none none trace Type Weight in lbs Pre/Post Dialysis Refused Weight 171.253535814623 BP Diastolic BP Location Tested BP Systolic BP Type 83 137 Fetus Heart Rate Present Fetus Movement A No Comments José Luis is a 21yo G1 at 13.3 for care. Her history is noncontributory. Already did labs and NIPT pending. She will get a flu shot and we discussed the benefits of a COVID booster. ROutine care. Flowsheet Date 03/25/2022 Hopkins Score Blood Edema Fundus Height Fundus Units Glucose Ketones Leukocytes Nitrite Labor Signs Protein Cervic Dilation Cervic Effacement Cervic Station none none trace Type Weight in lbs Pre/Post Dialysis Refused Weight 174.77470537877 BP Diastolic BP Location Tested BP Systolic BP Type 81 141 80 140 Fetus Heart Rate Present A 150 Fetus Movement A Yes Comments Doing well, no concerns. Oneyda sorto US next visit. Possibly some prehypertension, will monitor. Flowsheet Date 04/27/2022 Hopkins Score Blood Edema Fundus Height Fundus Units Glucose Ketones Leukocytes Nitrite Labor Signs Protein Cervic Dilation Cervic Effacement Cervic Station Type Weight in lbs Pre/Post Dialysis Refused BP Diastolic BP Location Tested BP Systolic BP Type Fetus Heart Rate Present Fetus Movement Comments Flowsheet Date 04/27/2022 Hopkins Score Blood Edema Fundus Height Fundus Units Glucose Ketones Leukocytes Nitrite Labor Signs Protein Cervic Dilation Cervic Effacement Cervic Station 22 Type Weight in lbs Pre/Post Dialysis Refused Weight 182.323793671402 BP Diastolic BP Location Tested BP Systolic BP Type 71 R arm 109 sitting Fetus Heart Rate Present A 145 Fetus Movement Comments no complaints, no problems, incomplete anatomy, some low back pain, mild, given recommendations. Flowsheet Date 05/26/2022 Hopkins Score Blood Edema Fundus Height Fundus Units Glucose Ketones Leukocytes Nitrite Labor Signs Protein Cervic Dilation Cervic Effacement Cervic Station Type Weight in lbs Pre/Post Dialysis Refused BP Diastolic BP Location Tested BP Systolic BP Type Fetus Heart Rate Present Fetus Movement Comments Flowsheet Date 05/26/2022 Hopkins Score Blood Edema Fundus Height Fundus Units Glucose Ketones Leukocytes Nitrite Labor Signs Protein Cervic Dilation Cervic Effacement Cervic Station 26 Type Weight in lbs Pre/Post Dialysis Refused Weight 186.918691596160 BP Diastolic BP Location Tested BP Systolic BP Type 71 R arm 118 sitting Fetus Heart Rate Present A 145 Fetus Movement A Yes Comments no complaints, no problems, routine care completed anatomy today Flowsheet Date 06/09/2022 Hopkins Score Blood Edema Fundus Height Fundus Units Glucose Ketones Leukocytes Nitrite Labor Signs Protein Cervic Dilation Cervic Effacement Cervic Station 28 Type Weight in lbs Pre/Post Dialysis Refused Weight 188.270235761341 BP Diastolic BP Location Tested BP Systolic BP Type 76 R arm 122 sitting Fetus Heart Rate Present A 145 Fetus Movement A Yes Comments no complaints, no problems, 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 reviewed precautions, doing well, baby shower today, +FM f/u 2 weeks Flowsheet Date 07/08/2022 Hopkins Score Blood Edema Fundus Height Fundus Units Glucose Ketones Leukocytes Nitrite Labor Signs Protein Cervic Dilation Cervic Effacement Cervic Station neg none 31 none trace Type Weight in lbs Pre/Post Dialysis Refused Weight 190.280952701619 BP Diastolic BP Location Tested BP Systolic BP Type 75 127 Fetus Heart Rate Present A 132 Present Fetus Movement A Yes Comments doing well, no complaints, h as preadmit scheduled. precautions reviewed Flowsheet Date 07/22/2022 Hopkins Score Blood Edema Fundus Height Fundus Units Glucose Ketones Leukocytes Nitrite Labor Signs Protein Cervic Dilation Cervic Effacement Cervic Station Type Weight in lbs Pre/Post Dialysis Refused BP Diastolic BP Location Tested BP Systolic BP Type Fetus Heart Rate Present Fetus Movement Comments Flowsheet Date 07/22/2022 Hopkins Score Blood Edema Fundus Height Fundus Units Glucose Ketones Leukocytes Nitrite Labor Signs Protein Cervic Dilation Cervic Effacement Cervic Station Type Weight in lbs Pre/Post Dialysis Refused Weight 192.306056562084 BP Diastolic BP Location Tested BP Systolic BP Type 75 R arm 121 sitting Fetus Heart Rate Present Fetus Movement A Yes Comments Flowsheet Date 08/04/2022 Hopkins Score Blood Edema Fundus Height Fundus Units Glucose Ketones Leukocytes Nitrite Labor Signs Protein Cervic Dilation Cervic Effacement Cervic Station 0cm 0% -4 Type Weight in lbs Pre/Post Dialysis Refused Weight 196.291236307445 BP Diastolic BP Location Tested BP Systolic BP Type 74 R arm 123 sitting Fetus Heart Rate Present A 136 Fetus Movement A Yes Comments Very high, not engaged, Flowsheet Date 08/11/2022 Hopkins Score Blood Edema Fundus Height Fundus Units Glucose Ketones Leukocytes Nitrite Labor Signs Protein Cervic Dilation Cervic Effacement Cervic Station 37 none trace Type Weight in lbs Pre/Post Dialysis Refused Weight 198.534716677275 BP Diastolic BP Location Tested BP Systolic BP Type 80 R arm 134 sitting Fetus Heart Rate Present A 152 Fetus Movement Comments no complaints, no problems, routine care Flowsheet Date 08/18/2022 Hopkins Score Blood Edema Fundus Height Fundus Units Glucose Ketones Leukocytes Nitrite Labor Signs Protein Cervic Dilation Cervic Effacement Cervic Station 38 none trace 1cm 50% -3 Type Weight in lbs Pre/Post Dialysis Refused Weight 197.014744159847 BP Diastolic BP Location Tested BP Systolic BP Type 78 R arm 120 sitting Fetus Heart Rate Present A 145 Fetus Movement Comments no complaints, no problems, routine care, considering induction next week Flowsheet Date 08/25/2022 Hopkins Score Blood Edema Fundus Height Fundus Units Glucose Ketones Leukocytes Nitrite Labor Signs Protein Cervic Dilation Cervic Effacement Cervic Station 39 Type Weight in lbs Pre/Post Dialysis Refused Weight 201.934609427383 BP Diastolic BP Location Tested BP Systolic BP Type 83 R arm 127 sitting Fetus Heart Rate Present A 145 Fetus Movement A Yes Comments no complaints, no problems, routine care, to induce in 6 days. Menstrual History Last Menstrual Date Menses Monthly On Bcp Conception Prior Menses Frequency Hcg Plus Date Menarche Onset Age 1011/23/2021 Genetic Screening And Infection History Question Response Note Mental Retardation/Autism false Patient's Age Will Be 35 Years Or Older At Estim ated Date of Delivery false Thalassemia (Pakistani, Yemeni, Mediterranean, Or Background): MCV < 80 false Neural Tube Defect (Meningomyelocele, Spina Bifi da, Or Anencephaly) false Congenital Heart Defect false Down Syndrome false Sacha-Sachs (eg, Uatsdin, Cajun, Chilean-Latvian) f alse Lucius Disease false Sickle Cell Disease Or Trait () false Hemophilia Or Other Blood Disorders false Muscular Dystrophy false Cystic Fibrosis false Austin's Chorea false Intellectual Disability/Autism false If Yes, Was Person Tested For Fragile X? false Other Inherited Genetic Or Chromosomal Disorder false Maternal Metabolic Disorder (eg, Type 1 Diabetes , PKU) false Patient Or Baby's Father Had A Child With Defects Not Listed Above false Recurrent Loss, Or A Stillbirth false Medications (including Suppl ements, Vitamins, Herbs, OTC Drugs), Illicit/Recreational Drugs, Alcohol false If Yes, Agent(s) And Strength/Dosage false Any Other Genetic History false Live With Someone With TB Or Exposed To TB false Patient Or Partner Has History Of Genital Herpes false Rash Or Viral Illness Since Last Menstrual Perio d false History Of STD, Gonorrhea, Chlamydia, HPV, Syphi lis false Other Infection History false History of HIV false History of Hepatitis false Prior GBS-infected child false Hemoglobinopathy Or Carrier false Other Structural Defect false Recent Travel History Outside of Country false Delivery Information Delivery Date Delivery Type Labor Anesthesia Weeks Gestation Incision Type Labor Labor Length Hrs Delivered By Post Complications Tubal Sterilization Discharge Date Comments 3 Induce d [facility]-Ep id[facility] 40.2 false Dale Shepard MD PCOS Discharge Information Feeding Method Contraceptive Method Maternal HG B and HCT Levels Ob Episode Information Episode Created Date Number of Fetuses Patient Bloodtype Patient rh Status Prepregnancy Weight lbs Domestic Partner Domestic Partner Phone Father Name [employer]ator [employer] Status 09/18/19 24 1 A Positive 190 Berny Iqbal OPEN Fetus Data First Name Last Name Admitted to NICU Weight (g) Sex Living Outcome Pediatric Complications Fetus ID Race Codes Race Delivery Type [id number] Problems Problem Notes 01/07 9am growth u/s 02/01 11 :15 US only scheduled [facility] 02/15 1:45 US & NST 02/22 US & NST 945AM 03/08 U/S & NST 0945 03/15 945US & NST Problem Name Start Date End Date Resolution Snomed Code Not e growth restriction [id number] 16th percentile on January 08, 2024 Group B Streptococcus carrier [id number] Pneumonia 10/25/2023 [id number] Polycystic ovary syndrome [id number] Obesity 10/16/2023 [id number] 37wk week ly testing Tito Calculation Initial Tito Date Initial Exam Date Initial Exam Provider Initial Ultrasound Date Last Menstrual Period Date Ultra Sound Weeks Gestation 03/30/2024 09/18/2023 09/18/2023 06/24/2023 12 Eighteen To Twenty Week Tito Update Ultra Sound Date Fundal Height At Umbil Quickening Date Ultra Sound Latest Weeks Gestation Final Tito Confirmed By Final Tito Confirmed Date Final Tito Date Ultra Sound Latest Days Gestation 0 [email or web address] 12/13/2023 03/30/19 25 0 Pre-ketan Flowsheet Flowsheet Date 09/18/2023 Hopkins Score Blood Edema Fundus Height Fundus Units Glucose Ketones Leukocytes Nitrite Labor Signs Protein Cervic Dilation Cervic Effacement Cervic Station Type Weight in lbs Pre/Post Dialysis Refused Weight 191.996142895473 BP Diastolic BP Location Tested BP Systolic BP Type 79 L arm 127 sitting Fetus Heart Rate Present A 145 Fetus Movement Comments this patient is a 22-year-ol d multiparous female at 12 weeks' gestation who presents for initial care. She has a history of term vaginal births. Her medical, surgical, obstetric history is unremarkable. She is vaccinated. She was given precautions recommendations for . We talked about vaccines in . Talked about care in detail. She is having genetic testing. She had a normal 12 week ultrasound. To begin routine care. Flowsheet Date 10/16/2023 Hopkins Score Blood Edema Fundus Height Fundus Units Glucose Ketones Leukocytes Nitrite Labor Signs Protein Cervic Dilation Cervic Effacement Cervic Station none Type Weight in lbs Pre/Post Dialysis Refused 192.377846483849 BP Diastolic BP Location Tested BP Systolic BP Type 77 121 Fetus Heart Rate Present A 141 Fetus Movement A Yes Comments no complaints, no problems, routine care, no contractions, no vaginal bleeding, no loss of fluid, no cramping Flowsheet Date 11/17/2023 Hopkins Score Blood Edema Fundus Height Fundus Units Glucose Ketones Leukocytes Nitrite Labor Signs Protein Cervic Dilation Cervic Effacement Cervic Station Type Weight in lbs Pre/Post Dialysis Refused BP Diastolic BP Location Tested BP Systolic BP Type Fetus Heart Rate Present Fetus Movement Comments Flowsheet Date 11/17/2023 Hopkins Score Blood Edema Fundus Height Fundus Units Glucose Ketones Leukocytes Nitrite Labor Signs Protein Cervic Dilation Cervic Effacement Cervic Station Type Weight in lbs Pre/Post Dialysis Refused 191.184037728420 BP Diastolic BP Location Tested BP Systolic BP Type 75 L arm 133 sitting Fetus Heart Rate Present A 134 Fetus Movement A Yes Comments growth in the 4th percentile , to see MFM, has trouble standing at work. To get her some relief from work. Also to get her a maternity belt. Otherwise no complaints. Discussed growth restriction Flowsheet Date 12/13/2023 Hopkins Score Blood Edema Fundus Height Fundus Units Glucose Ketones Leukocytes Nitrite Labor Signs Protein Cervic Dilation Cervic Effacement Cervic Station 24 cm Type Weight in lbs Pre/Post Dialysis Refused 191.092767010490 BP Diastolic BP Location Tested BP Systolic BP Type 76 L arm 124 sitting Fetus Heart Rate Present Fetus Movement A Yes Comments no complaints, no problems, routine care, no contractions, no vaginal bleeding, no loss of fluid, no cramping Flowsheet Date 01/08/2024 Hopkins Score Blood Edema Fundus Height Fundus Units Glucose Ketones Leukocytes Nitrite Labor Signs Protein Cervic Dilation Cervic Effacement Cervic Station Type Weight in lbs Pre/Post Dialysis Refused 196.541337846074 BP Diastolic BP Location Tested BP Systolic BP Type 77 L arm 127 sitting Fetus Heart Rate Present A 144 Fetus Movement A Yes Comments no complaints, no problems, routine care, no contractions, no vaginal bleeding, no loss of fluid, no cramping seen by MFM today, good growth -16th percentile Flowsheet Date 01/26/2024 Hopkins Score Blood Edema Fundus Height Fundus Units Glucose Ketones Leukocytes Nitrite Labor Signs Protein Cervic Dilation Cervic Effacement Cervic Station Type Weight in lbs Pre/Post Dialysis Refused 194.630221691264 BP Diastolic BP Location Tested BP Systolic BP Type 78 L arm 114 sitting Fetus Heart Rate Present A 145 Fetus Movement A Yes Comments no complaints, no problems, routine care, no contractions, no vaginal bleeding, no loss of fluid, no cramping Flowsheet Date 02/09/2024 Hopkins Score Blood Edema Fundus Height Fundus Units Glucose Ketones Leukocytes Nitrite Labor Signs Protein Cervic Dilation Cervic Effacement Cervic Station Type Weight in lbs Pre/Post Dialysis Refused 194.857701713765 BP Diastolic BP Location Tested BP Systolic BP Type 72 L arm 127 sitting Fetus Heart Rate Present Fetus Movement A Yes Comments no complaints, no problems, routine care, no contractions, no vaginal bleeding, no loss of fluid, no cramping growth at 7% 2 weeks ago. Reassuring testing today at [facility]. Flowsheet Date 02/23/2024 Hopkins Score Blood Edema Fundus Height Fundus Units Glucose Ketones Leukocytes Nitrite Labor Signs Protein Cervic Dilation Cervic Effacement Cervic Station Type Weight in lbs Pre/Post Dialysis Refused 194.613539989591 BP Diastolic BP Location Tested BP Systolic BP Type 72 L arm 118 sitting Fetus Heart Rate Present A 145 Fetus Movement Comments no complaints, no problems, routine care, no contractions, no vaginal bleeding, no loss of fluid, no crampingImproved growth at [facility] today Flowsheet Date 03/01/2024 Hopkins Score Blood Edema Fundus Height Fundus Units Glucose Ketones Leukocytes Nitrite Labor Signs Protein Cervic Dilation Cervic Effacement Cervic Station Type Weight in lbs Pre/Post Dialysis Refused Weight 196.990802159125 BP Diastolic BP Location Tested BP Systolic BP Type 77 L arm 132 sitting Fetus Heart Rate Present A 145 Fetus Movement A Yes Comments no complaints, no problems, routine care, no contractions, no vaginal bleeding, no loss of fluid, no cramping Flowsheet Date 03/08/2024 Hopkins Score Blood Edema Fundus Height Fundus Units Glucose Ketones Leukocytes Nitrite Labor Signs Protein Cervic Dilation Cervic Effacement Cervic Station Type Weight in lbs Pre/Post Dialysis Refused Weight 192.833965309347 BP Diastolic BP Location Tested BP Systolic BP Type 70 L arm 112 sitting Fetus Heart Rate Present A 150 Present Fetus Movement Comments no complaints, no problems, routine care, no contractions, no vaginal bleeding, no loss of fluid, no cramping Flowsheet Date 03/15/2024 Hopkins Score Blood Edema Fundus Height Fundus Units Glucose Ketones Leukocytes Nitrite Labor Signs Protein Cervic Dilation Cervic Effacement Cervic Station 37 cm 2cm Type Weight in lbs Pre/Post Dialysis Refused 192.141789393811 BP Diastolic BP Location Tested BP Systolic BP Type 71 L arm 111 sitting Fetus Heart Rate Present A 144 Fetus Movement A Yes Comments no complaints, no problems, routine care, no contractions, no vaginal bleeding, no loss of fluid, no cramping Flowsheet Date 03/18/2024 Hopkins Score Blood Edema Fundus Height Fundus Units Glucose Ketones Leukocytes Nitrite Labor Signs Protein Cervic Dilation Cervic Effacement Cervic Station neg none Type Weight in lbs Pre/Post Dialysis Refused Weight 195.823289234889 BP Diastolic BP Location Tested BP Systolic BP Type 73 L arm 116 sitting Fetus Heart Rate Present A 130 Fetus Movement A Yes Comments Patient c/o Hubert Mak. G ood movement. No bleeding. EIL 03/30. Labor precautions reviewed. RTC 1 week. Flowsheet Date 03/29/2024 Hopkins Score Blood Edema Fundus Height Fundus Units Glucose Ketones Leukocytes Nitrite Labor Signs Protein Cervic Dilation Cervic Effacement Cervic Station 3cm Type Weight in lbs Pre/Post Dialysis Refused 193.67548684281 BP Diastolic BP Location Tested BP Systolic BP Type 74 L arm 128 sitting Fetus Heart Rate Present A 140 Present Fetus Movement A Yes Comments no complaints, no problems, routine care, no contractions, no vaginal bleeding, no loss of fluid, no cramping Menstrual History Last Menstrual Date Menses Monthly On Bcp Conception Prior Menses Frequency Hcg Plus Date Menarche Onset Age 0506/24/2023 true false 34 11 Genetic Screening And Infection History Question Response Note Mental Retardation/Autism false Patient's Age Will Be 35 Years Or Older At Estim ated Date of Delivery false Thalassemia (Pakistani, Yemeni, Mediterranean, Or Background): MCV < 80 false Neural Tube Defect (Meningomyelocele, Spina Bifi da, Or Anencephaly) false Congenital Heart Defect false Down Syndrome false Sacha-Sachs (eg, Uatsdin, Cajun, Chilean-Latvian) f alse Lucius Disease false Sickle Cell Disease Or Trait () false Hemophilia Or Other Blood Disorders false Muscular Dystrophy false Cystic Fibrosis false Austin's Chorea false Intellectual Disability/Autism false If Yes, Was Person Tested For Fragile X? false Other Inherited Genetic Or Chromosomal Disorder false Maternal Metabolic Disorder (eg, Type 1 Diabetes , PKU) false Patient Or Baby's Father Had A Child With Defects Not Listed Above false Recurrent Loss, Or A Stillbirth false Medications (including Suppl ements, Vitamins, Herbs, OTC Drugs), Illicit/Recreational Drugs, Alcohol false If Yes, Agent(s) And Strength/Dosage false Any Other Genetic History false Live With Someone With TB Or Exposed To TB false Patient Or Partner Has History Of Genital Herpes false Rash Or Viral Illness Since Last Menstrual Perio d false History Of STD, Gonorrhea, Chlamydia, HPV, Syphi lis false Other Infection History false History of HIV false History of Hepatitis false Prior GBS-infected child false Hemoglobinopathy Or Carrier false Other Structural Defect false Recent Travel History Outside of Country false Delivery Information Delivery Date Delivery Type Labor Anesthesia Weeks Gestation Incision Type Labor Labor Length Hrs Delivered By Post Complications Tubal Sterilization Discharge Date Comments Discharge Information Feeding Method Contraceptive Method Maternal HG B and HCT Levels
--- OUTSIDE RECORDS SUMMARY | 2024-03-30 05:02 | XMS_ITS | Encounter Summary ---
Author Organization [facility] Address [address] [place] [address] Care Team Providers Care Visiting Professor Name Role Phone Unavailable Primary Care Provider Unavailabl e Reason for Visit * Reason Onset Date Comments Appointment 02/15/2024 Encounter Details Date Type Department Care Team (Late st Contact Info) Description 02/15/2024 Telephone [facility] [address] [place] [address] Leia Gómez, RN Appointment Social History Tobacco Use Types Packs/Day Years Used Date Smoking Tobacco: Never Assessed Estimated Date of Delivery Comme nts Yes 03/30/2024 Based on last me nstrual period of 06/24/2023 Sex and Gender Information Value Date Recorded Sex Assigned at Not on file Gender Identity Not on file Sexual Orientation Not on file documented as of this encounter Plan of Treatment Not on file documented as of this encounter Visit Diagnoses Not on filedocumented in this encounter
--- OUTSIDE RECORDS SUMMARY | 2024-03-30 05:02 | XMS_ITS | Clinical Summary ---
Author Organization [facility] Address [address] [place] [address] Care Team Providers Care Pan Washer Hand Name Role Phone Unavailable Primary Care Provider Unavailabl e Source Comments [facility],non-owned Affiliates and Associated Physician Practices is amultiple site organization consisting of ambulatory clinics and hospital sitesin [place], [place], [place] and [place]. This disclosure is being madepursuant to the Care Everywhere program and may not contain all information available regarding this patient. Last updated 17.[facility] Allergies No known active allergies Encounters Date Type Department Care Team Description 03/15/2024 9:34 AM SANDER MACHINE - 03/15/2024 11:59 PM SANDER MACHINE Hospital Encounter [facility] [address] [place] [phone] Chencho Tesfaye MD Discharge Disposition: Home or Self Care 03/08/2024 9:35 AM SANDER MACHINE - 03/08/2024 11:59 PM SANDER MACHINE Hospital Encounter [facility] [address] [place] [phone] Geovanny Grewal MD Stewart, Jeffrey D, MD Discharge Disposition: Home or Self Care 03/01/2024 10:18 AM SANDER MACHINE - 03/01/2024 11:59 PM SANDER MACHINE Hospital Encounter [facility] [address] [place] [id number] Miguel Gonsales MD ROBOTICS TECHNICIAN Discharge Disposition: Home or Self Care 02/23/2024 9:45 AM SANDER MACHINE - 02/23/2024 11:59 PM SANDER MACHINE Hospital Encounter [facility] [address] [place] [phone] PolcarMike andrade DO Boyle, Annelee C, MD ROBOTICS TECHNICIAN Discharge Disposition: Home or Self Care 02/16/2024 9:54 AM SANDER MACHINE - 02/16/2024 11:59 PM SANDER MACHINE Hospital Encounter [facility] [address] [place] [phone] Kezia Barkley MD Discharge Disposition: Home or Self Care 02/16/2024 Travel 02/15/2024 [facility] [place] [address] Leia Gómez RN Appointment 02/09/2024 9:45 AM SANDER MACHINE - 02/09/2024 11:59 PM SANDER MACHINE Hospital Encounter [facility] [address] [place] [address] [phone] Miles Kingston MD Discharge Disposition: Home or Self Care 02/02/2024 11:12 AM SANDER MACHINE - 02/02/2024 11:59 PM SANDER MACHINE Hospital Encounter [facility] [address] [place] [address] [phone] Kezia Barkley MD Discharge Disposition: Home or Self Care 02/02/2024 Travel 01/08/2024 8:57 AM SANDER MACHINE - 01/08/2024 11:59 PM SANDER MACHINE Hospital Encounter [facility] [address] [place] [phone] Pedro Glalo MD Discharge Disposition: Home or Self Care from Last 3 Months Social History Tobacco Use Types Packs/Day Years [...] Comments Blood Pressure 107/67 03/15/2024 10:21 AM SANDER MACHINE Pulse 82 03/15/2024 10:21 AM SANDER MACHINE Temperature - - Respiratory Rate 16 02/09/2024 10:17 AM SANDER MACHINE Oxygen Saturation - - Inhaled Oxygen Concentration - - Weight - - Height - - Body Mass Index - - Plan of Treatment Health Maintenance Due Date Last Done Comments PAP SMEAR 1998 HIV SCREENING 2013 HPV VACCINE (1 - 3-dose series) 2013 CHLAMYDIA/GONORRHEA SCREENING 2014 HEPATITIS C SCREENING 12/25/2016 DTAP/TDAP/TD VACCINES (1 - Tdap) 2017 HEPATITIS B VACCINE (1 of 3 - 19+ 3-dose series) 2017 OB-ONE HOUR GLUCOSE 12/23/2023 OB-TDAP CURRENT 2023 OB-RHOGAM INJECTION 01/06/2024 DEPRESSION SCREENING 02/07/2024 OB-GROUP B STREP SCREEN 02/24/2024 ZOSTER VACCINE (1 of 2) 2048 COVID-19 VACCINE Completed 03/04/2024 INFLUENZA VACCINE Completed 03/04/2024 HIB VACCINE Aged Out No longer eligi ble based on patient's age to complete this topic MENINGOCOCCAL (Group B) VACCINE Aged Out No longer eligible based on patient's age to complete this topic MENINGOCOCCAL VACCINE Aged Out No alexa chaparrita eligible based on patient's age to complete this topic PNEUMOCOCCAL VACCINE Aged Out No long er eligible based on patient's age to complete this topic Respiratory Syncytial Virus (RSV) Vaccine Pt: or over 60 yrs (No Doses Required) Completed Procedures Procedure Name Priority Date/Time Associated Diagnosis Comments BIOPHYSICAL PROFILE W T Routine 03/15/2024 10:44 AM SANDER MACHINE Poor growth affecting management of mother in second trimester, single or unspecified fetus (HCC) Encounter for ultrasound to assess growth (HCC) 32 weeks gestation of (HCC) Encounter for screening ([facility]) BIOPHYSICAL PROFILE W NST Routine 03/08/2024 9:40 AM SANDER MACHINE Poor growth affecting management of mother in second trimester, single or unspecified fetus (HCC) Encounter for ultrasound to assess growth (HCC) 32 weeks gestation of (HCC) Encounter for screening ([facility]) BIOPHYSICAL PROFILE W NST Routine 03/01/2024 10:25 AM SANDER MACHINE Poor growth affecting management of mother in second trimester, single or unspecified fetus (HCC) Encounter for ultrasound to assess growth (HCC) 32 weeks gestation of (HCC) Encounter for screening (HCC) BIOPHYSICAL PROFILE W NST Routine 02/23/2024 10:29 AM SANDER MACHINE Poor growth affecting management of mother in second trimester, single or unspecified fetus (HCC) Encounter for ultrasound to assess growth (HCC) 32 weeks gestation of (HCC) Encounter for screening (HCC) BIOPHYSICAL PROFILE W NST Routine 02/16/2024 10:30 AM SANDER MACHINE Poor growth affecting management of mother in second trimester, single or unspecified fetus (HCC) Encounter for ultrasound to assess growth (HCC) 32 weeks gestation of (HCC) Encounter for screening (HCC) BIOPHYSICAL PROFILE W NST Routine 02/09/2024 10:33 AM SANDER MACHINE Poor growth affecting management of mother in second trimester, single or unspecified fetus (HCC) Encounter for ultrasound to assess growth (HCC) 32 weeks gestation of (HCC) Encounter for screening (HCC) SONOGRAM - COMPLETE Routine 02/02/2024 1 1:14 AM SANDER MACHINE Poor growth affecting management of mother in second trimester, single or unspecified fetus (HCC) Encounter for ultrasound to assess growth (HCC) 32 weeks gestation of (HCC) SONOGRAM - COMPLETE Routine 01/08/2024 9 :18 AM SANDER MACHINE Poor growth affecting management of mother in second trimester, single or unspecified fetus (HCC) Encounter for follow-up ultrasound of anatomy (HCC) Encounter for ultrasound to assess growth (HCC) 28 weeks gestation of (HCC) from Last 3 Months Results * BIOPHYSICAL PROFILE W NST (03/15/2024 10:44 AM SANDER MACHINE) Only the most recent of6 resultswithin the time period is included. Linked Results Indication ======== SGA/ growth restriction Obesity, Class II History ====== OB History 2. Para 1 [id number] Lab Tests Test Date Result NIPT Low [...] 6 lb 4 oz EFW by Hadlock ([id number]) appropriate Growth Overview = Exam date GA [...] PNC with referring provider. Coding ====== Procedures 42080: [place] [address]: Biophysical Profile W NST [employer] PACS Anatomical Region Laterality Modality Other 03/15/2024 10:4 4 AM SANDER MACHINE R Ronak Shepard MD [facility] ORDERABLES * SONOGRAM - COMPLETE (02/02/2024 11:14 AM SANDER MACHINE) Only the most recent of2 resultswithin the time period is included. Linked Results Addendum ========= First trimester US added to dating Indication ======== Completed anatomy Obesity, Class II History ====== OB History 2. Para 1 [id number] Lab Tests Test Date Result NIPT Low [...] 3 lb 7 oz EFW by Hadlock ([id number]) SGA Growth Overview = Exam date GA [...] Close surveillance for hypertension. Coding ====== Procedures 42310: [place] [address]: Biophysical Profile W NST 22440: Umbilical Doppler 25430: MCA Doppler [facility] Anatomical Region Laterality Modality Other 02/02/2024 11:1 4 AM SANDER MACHINE R Ronak Shepard MD [facility] ORDERABLES from Last [address] [place] [address] José Luis Iqbal Personal/Family Self 2000
--- OUTSIDE RECORDS SUMMARY | 2024-03-30 05:02 | XMS_ITS | Referral Summary ---
Author Organization [facility] Address [address] [place] [address] Care Team Providers Care Ecommerce Merchandising Manager Name Role Phone Unavailable Primary Care Provider Unavailabl e Source Comments [facility],non-owned Affiliates and Associated Physician Practices is amultiple site organization consisting of ambulatory clinics and hospital sitesin [place], [place], [place] and [place]. This disclosure is being madepursuant to the Care Everywhere program and may not contain all information available regarding this patient. Last updated 17.[facility] Encounters Date Type Department Care Team Description 03/15/2024 9:34 AM CROP NUTRITION SCIENTIST - 03/15/2024 11:59 PM CROP NUTRITION SCIENTIST Hospital Encounter [facility] [address] [place] [phone] Chencho Tesfaye MD Discharge Disposition: Home or Self Care 03/08/2024 9:35 AM CROP NUTRITION SCIENTIST - 03/08/2024 11:59 PM CROP NUTRITION SCIENTIST Hospital Encounter [facility] [address] [place] [phone] Geovanny Grewal MD Stewart, Jeffrey D, MD Discharge Disposition: Home or Self Care 03/01/2024 10:18 AM CROP NUTRITION SCIENTIST - 03/01/2024 11:59 PM CROP NUTRITION SCIENTIST Hospital Encounter [facility] [address] [place] [phone] Miguel Gonsales MD DRAWING IN HAND Discharge Disposition: Home or Self Care 02/23/2024 9:45 AM CROP NUTRITION SCIENTIST - 02/23/2024 11:59 PM CROP NUTRITION SCIENTIST Hospital Encounter [facility] [address] [place] [phone] Mike Rosa DO Boyle, Annelee C, MD DRAWING IN HAND Discharge Disposition: Home or Self Care 02/16/2024 Travel 02/16/2024 9:54 AM CROP NUTRITION SCIENTIST - 02/16/2024 11:59 PM CROP NUTRITION SCIENTIST Hospital Encounter [facility] [address] [place] [phone] Kezia Bakrley MD Discharge Disposition: Home or Self Care 02/15/2024 Telephone [facility] [address] [place] [phone] Leia Gómez, ZACHARY Appointment 02/09/2024 9:45 AM CROP NUTRITION SCIENTIST - 02/09/2024 11:59 PM CROP NUTRITION SCIENTIST Hospital Encounter [facility] [address] [place] [phone] Miles Kingston MD Discharge Disposition: Home or Self Care 02/02/2024 Travel 02/02/2024 11:12 AM CROP NUTRITION SCIENTIST - 02/02/2024 11:59 PM CROP NUTRITION SCIENTIST Hospital Encounter [facility] [address] [place] [phone] Kezia Barkley MD Discharge Disposition: Home or Self Care 01/08/2024 8:57 AM CROP NUTRITION SCIENTIST - 01/08/2024 11:59 PM CROP NUTRITION SCIENTIST Hospital Encounter [facility] [address] [place] [phone] Pedro Gallo MD Discharge Disposition: Home or Self Care from Last 3 Months Allergies No known active allergies Social History [...] Comments Blood Pressure 107/67 03/15/2024 10:21 AM CROP NUTRITION SCIENTIST Pulse 82 03/15/2024 10:21 AM CROP NUTRITION SCIENTIST Temperature - - Respiratory Rate 16 02/09/2024 10:17 AM CROP NUTRITION SCIENTIST Oxygen Saturation - - Inhaled Oxygen Concentration - - Weight - - Height - - Body Mass Index - - Plan of Treatment Not on file Procedures Procedure Name Priority Date/Time Associated Diagnosis Comments BIOPHYSICAL PROFILE [facility] Routine 03/15/2024 10:44 AM CROP NUTRITION SCIENTIST Poor growth affecting management of mother in second trimester, single or unspecified fetus (HCC) Encounter for ultrasound to assess growth (HCC) 32 weeks gestation of (HCC) Encounter for screening (HCC) BIOPHYSICAL PROFILE [facility] Routine 03/08/2024 9:40 AM CROP NUTRITION SCIENTIST Poor growth affecting management of mother in second trimester, single or unspecified fetus (HCC) Encounter for ultrasound to assess growth (HCC) 32 weeks gestation of (HCC) Encounter for screening (HCC) BIOPHYSICAL PROFILE [facility] Routine 03/01/2024 10:25 AM CROP NUTRITION SCIENTIST Poor growth affecting management of mother in second trimester, single or unspecified fetus (HCC) Encounter for ultrasound to assess growth (HCC) 32 weeks gestation of (HCC) Encounter for screening (HCC) BIOPHYSICAL PROFILE [facility] Routine 02/23/2024 10:29 AM CROP NUTRITION SCIENTIST Poor growth affecting management of mother in second trimester, single or unspecified fetus (HCC) Encounter for ultrasound to assess growth (HCC) 32 weeks gestation of (HCC) Encounter for screening (HCC) BIOPHYSICAL PROFILE [facility] Routine 02/16/2024 10:30 AM CROP NUTRITION SCIENTIST Poor growth affecting management of mother in second trimester, single or unspecified fetus (HCC) Encounter for ultrasound to assess growth (HCC) 32 weeks gestation of (HCC) Encounter for screening (HCC) BIOPHYSICAL PROFILE [facility] Routine 02/09/2024 10:33 AM CROP NUTRITION SCIENTIST Poor growth affecting management of mother in second trimester, single or unspecified fetus (HCC) Encounter for ultrasound to assess growth (HCC) 32 weeks gestation of (HCC) Encounter for screening (HCC) SONOGRAM - COMPLETE Routine 02/02/2024 1 1:14 AM CROP NUTRITION SCIENTIST Poor growth affecting management of mother in second trimester, single or unspecified fetus (HCC) Encounter for ultrasound to assess growth (HCC) 32 weeks gestation of (HCC) SONOGRAM - COMPLETE Routine 01/08/2024 9 :18 AM CROP NUTRITION SCIENTIST Poor growth affecting management of mother in second trimester, single or unspecified fetus (HCC) Encounter for follow-up ultrasound of anatomy (HCC) Encounter for ultrasound to assess growth (HCC) 28 weeks gestation of (HCC) from Last 3 Months Results * BIOPHYSICAL PROFILE W NST (03/15/2024 10:44 AM CROP NUTRITION SCIENTIST) Only the most recent of6 resultswithin the time period is included. Linked Results Indication ======== SGA/ growth restriction Obesity, Class II History ====== OB History 2. Para 1 [id number] Lab Tests Test Date Result NIPT Low [...] tone 2: Amniotic fluid volume NST: reactive 11/15 Biophysical profile score Non Stress Test NST [...] 6 lb 4 oz EFW by Hadlock ([id number]) appropriate Growth Overview = Exam date GA [...] PNC with referring provider. Coding ====== Procedures 81383: [place] [address]: Biophysical Profile W NST [employer] PACS Anatomical Region Laterality Modality Other 03/15/2024 10:4 4 AM CROP NUTRITION SCIENTIST R Ronak Shepard MD [facility] ORDERABLES * SONOGRAM - COMPLETE (02/02/2024 11:14 AM CROP NUTRITION SCIENTIST) Only the most recent of2 resultswithin the time period is included. Linked Results Addendum ========= First trimester US added to dating Indication ======== Completed anatomy Obesity, Class II History ====== OB History 2. Para 1 [id number] Lab Tests Test Date Result NIPT Low [...] 3 lb 7 oz EFW by Hadlock ([id number]) SGA Growth Overview = Exam date GA [...] Close surveillance for hypertension. Coding ====== Procedures 45043: [place] [address]: Biophysical Profile W NST 82320: Umbilical Doppler 66787: MCA Doppler [facility] [employer] PACS Anatomical Region Laterality Modality Other 02/02/2024 11:1 4 AM CROP NUTRITION SCIENTIST R Ronak Shepard MD [facility] ORDERABLES from Last 3 Months ., [address] [place] [address] José Luis Iqbal Personal/Family Self 2000
--- OUTSIDE RECORDS SUMMARY | 2024-03-30 05:02 | XMS_ITS | Continuity of Care Document ---
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 Discussed plan. [email or web address] Not available 03/29/2024 16:25:20 Plan of Treatment Reminders Order Date Submit Date Provider Last Modified By Organization Details Last Modified Time Details Appointments INDUCTION 2024 05:00A Rolan JONES MD Not available Not available Not available Lab None recorded. Referral None recorded. Procedures None recorded. Surgeries None recorded. Imaging None recorded. Medication Orders None recorded. Patient TargetsNo targets recorded. Patient InstructionsNo instructions recorded. Reason for Referral None Reported. Results Created Date Observation Date Name Description Value Unit Range Abnormal Flag Note LastModifiedBy Organization Detail LastModifiedTime 09/18/1909/18/2023 US, obste tric, nucha l trans lucen cy No observ ation record ed. [facility] [address], [place], [address], 09/18/2023 18:18:24 09/18/19 24 09/18/2023 US, obste tric, nucha l trans lucen cy No observ ation record ed. [facility] [address], [place], [address], 09/19/2023 09:21:52 10/26/19 24 10/26/2023 US, obste tric, follo w-up No observ ation record ed. [facility] [address], [place], [address], 10/27/2023 14:57:05 11/17/1911/17/2023 US, obste tric, 2nd or 3rd trime ster No observ ation record ed. [facility] [address], [place], [address], 11/17/2023 17:17:19 11/17/1911/17/2023 US, obste tric, follo w-up No observ ation record ed. [email or web address] [address], [place], [address], 11/20/2023 10:41:10 11/24/1911/24/2023 US, obste tric, follo w-up No observ ation record ed. [email or web address] [facility] [address], [place], [address], 11/27/2023 09:59:57 11/24/1911/24/2023 US, obste tric No observ ation record ed. [address], [place], [address], 11/27/2023 10:00:41 12/15/1912/15/2023 US, obste tric, follo w-up No observ ation record ed. [email or web address] [facility] [address], [place], [address], 12/18/2023 10:19:35 12/18/19 24 12/15/2023 US, obste tric, follo w-up No observ ation record ed. [facility] [address], [place], [address], 12/18/2023 14:36:49 01/08/20 24 01/08/2024 US, obste tric, follo w-up No observ ation record ed. [email or web address] [place] [address], [place], [address], 01/09/2024 12:02:51 01/08/20 24 01/08/2024 US, obste tric, follo w-up No observ ation record ed. [place] [address], [place], [address], 01/09/2024 12:02:30 02/02/20 24 02/02/2024 US, obste tric, follo w-up No observ ation record ed. [place] [address], [place], [address], 02/05/2024 12:09:30 02/02/20 24 02/02/2024 US, obste tric, follo w-up No observ ation record ed. [email or web address] [facility] [address], [place], [address], 02/08/2024 18:15:58 02/05/20 24 02/02/2024 US, obste tric, follo w-up No observ ation record ed. [email or web address] [place] [address], [place], [address], 02/05/2024 21:38:57 02/08/19 25 02/09/2024 US, obste tric, bioph ysica l profi le + non-s tress test No observ ation record ed. [email or web address] [place] [address], [place], [address], 02/14/2024 16:33:55 02/08/19 25 02/09/2024 US, obste tric, follo w-up No observ ation record ed. [email or web address] [place] [address], [place], [address], 02/14/2024 09:13:01 02/15/1902/16/2024 US, obste tric, follo w-up No observ ation record ed. [email or web address] [place] [address], [place], [address], 02/19/2024 18:14:53 02/18/19 25 02/16/2024 US, obste tric, follo w-up No observ ation record ed. [email or web address] [facility] [address], [address], 02/20/2024 09:23:47 02/22/19 25 02/23/2024 US, obste tric, bioph ysica l profi le + non-s tress test No observ ation record ed. [address] [facility] [address], [address], 02/26/2024 11:42:29 02/22/19 25 02/23/2024 US, obste tric, follo w-up No observ ation record ed. [address] [facility] [address], [address], 02/26/2024 11:43:12 03/01/19 25 03/01/2024 US, obste tric, bioph ysica l profi le + non-s tress test No observ ation record ed. [address] [facility] [address], [address], 03/05/2024 10:12:49 03/01/19 25 03/01/2024 US, obste tric, follo w-up No observ ation record ed. [email or web address] [place] [address], [place], [address], 03/06/2024 22:46:08 03/08/19 25 03/08/2024 US, obste tric, bioph ysica l profi le + non-s tress test No observ ation record ed. [email or web address] [facility] [address], [address], 03/12/2024 12:16:39 03/08/19 25 03/08/2024 US, obste tric, follo w-up No observ ation record ed. [email or web address] [facility] [address], [address], 03/12/2024 19:09:39 03/15/19 25 03/15/2024 US, obste tric, bioph ysica l profi le + non-s tress test No observ ation record ed. [address], [address], 03/18/2024 12:33:41 03/15/19 25 12/15/2023 US, obste tric, follo w-up No observ ation record ed. [email or web address] [facility] [address], [address], 03/18/2024 23:11:18 Result Notes None recorded. Problems Name Problem SNOMED Code Status Onset Date Resolution Date Notes Provider Name and Address Organization Details Recorded Time Pregnanc y 25057085 Completed 202209/02/2022 Debra Delgado null, [facility] 4 15:39:48 Rubella non-immu ne 444270788 Completed Sheree Clark null, [facility] 3 13:46:23 Polycyst ic ovary syndrome 448326241 Completed Sheree Clark null, [facility] 3 13:46:23 Pregnanc y 77389615 Active 2023 Debra Delgado null, [facility] 4 15:39:48 Polycyst ic ovary syndrome 035610090 Active Sheree Clark [facility], [facility] 4 15:05:22 Obesity 469908254 Active 2023 37wk weekly antenata l testing Sheree Clark null, [facility] 4 15:06:13 Pneumoni a 365536581 Active 2023 Donna Douglas er null, [facility] 4 13:58:40 Pneumoni a 960435019 Active 2023 Donna Douglas er null, [facility] 4 14:03:52 growth restrict ion 01054894 Active [facility] on January 08, 2024 Dale Jones MD [address], [place], [address], [facility] 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 5 15:27:33 Problem Notes None recorded. Procedures Surgical History Date Name Laterality Status Provider Name and Address Organization Details Recorded Time 04/28/19 24 Date of Last Pap Smear completed Debra Delgado [facility] 09/18/2023 15:39:15 02/06/19 06 Tonsillectomy completed Ruth Dugan [facility] 02/11/2022 18:07:12 Imaging Results None recorded. Procedure Notes None recorded. Medical Equipment None [...] Available Not Available Vitals Date Recorded Body weight Systolic blood pressure Diastolic blood pressure Provider Name and Address Organization Details Last Updated DateTime 03/29/2024 17270.3274 1 g 128 mm[Hg] 74 mm[Hg] Debra Delgado [facility] 03/29/2024 16:25:55 Social History Question Answer Notes LastModified by Organizat ion Details LastModified Time Tobacco Smoking Status Never Smoker Maria L Chaparro [facility], [facility] 09/29/2022 10:33:26 What Is Your Level Of Alcohol Consumption? None [email or web address] Information not available 02/11/2022 If You Are , What Was Your Level Of Alcohol Consumption Prior To ? Occasional [email or web address] Information not available 09/29/2022 Are You Blind Or Do You Have Difficulty Seeing? No [email or web address] Information not available 02/11/2022 What Is Your Level Of Caffeine Consumption? Occasional [email or web address] Information not available 02/11/2022 How Much Tobacco Do You Chew? None Information not available 04/27/2022 In The 14 Days Before Symptom Onset, Have You Had Close Contact With A Laboratory-confir med COVID-19 While That Case Was Ill? No [email or web address] Information not available 02/11/2022 In The 14 Days Before Symptom Onset, Have You Had Close Contact With A Person Who Is Under Investigation For COVID-19 While That Person Was Ill? No [email or web address] Information not available 02/11/2022 Have You Been To An Area Known To Be High Risk For COVID-19? No [email or web address] Information not available 02/11/2022 Are You Deaf Or Do You Have Serious Difficulty Hearing? No Information not available 02/11/2022 What Type Of Diet Are You Following? REGULAR [email or web address] Information not available 02/11/2022 Do You Or Have You Ever Used E-cigarettes Or Vape? Former User Of Electronic Cigarettes Information not available 09/29/2022 What Is The Highest Grade Or Level Of School You Have Completed Or The Highest Degree You Have Received? 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 No Information not available 04/27/2022 Do You Use Protection During Sex? No Information not available 04/27/2022 Do You Use Your Seat Belt Or Car Seat Routinely? Yes [email or web address] Information not available 02/11/2022 Do You Have Smoke And Carbon Monoxide Detectors In Your Home? Yes Information not available 02/11/2022 How Much Tobacco Do You Smoke? No Information not available 04/27/2022 Do You Feel Stressed (tense, Restless, Nervous, Or Anxious, Or Unable To Sleep At Night)? [id number] Information not available 02/11/2022 Do You Use Any Illicit Or Recreational Drugs? No [email or web address] Information not available 02/11/2022 Do You Use Sunscreen Routinely? Yes Information not available 02/11/2022 Has Tobacco Cessation Counseling Been Provided? No [email or web address] Information not available 09/29/2022 Have You Used IV Drugs? No Information not available 04/27/2022 Do You Or Have You Ever Used Any Other Forms Of Tobacco Or Nicotine? Yes [email or web address] Information not available 09/29/2022 Sex: Unknown Functional Status Question Answer Note LastModified by Organizat ion Details LastModified Time Do you have difficulty walking or climbing stairs? No [email or web address] Information not available 09/29/2022 Are you able to walk? YESWOREST [email or web address] Information not available 02/11/2022 Are you able to care for yourself? Yes [email or web address] Information not available 09/29/2022 Do you have difficulty dressing or bathing? No [email or web address] Information not available 09/29/2022 What is your exercise level? Occasional [email or web address] Information not available 02/11/2022 Mental Status None recorded. Family History Relationship Description Onset Age of this Age Resolved Age Notes LastModified by Organization Details LastModified Time Sister Cyst of ovary [email or web address] Not available 02/11 18:05:56 Sister Polycystic ovary syndrome [email or web address] Not available 02/11 18:06:07 Medical History Condition Response Other N Blood Transfusion N Dermatologic Disorders N Gestational Diabetes N Anxiety Disorder N Autoimmune disease N Arthritis N Polyps N Infertility N Acid Reflux (GERD) N Cancer N Varicosities N Stroke N Neurologic/Epilepsy N Fibromyalgia N Headaches N Kidney Disease N Heart Problems N Kidney or Bladder Problems N Eating Disorder N Art (IVF or FET) N Hepatitis/Liver Disease N No Past Medical History N Urinary Tract Infection N Asthma N Trauma/Violence N Thrombophilias N Allergies (Food, seasonal, environmental ) Y Breast Cancer N Drug/Latex Allergies/Reactions N Lung Disease N Defects or Inherited Disease N Breast Problem N Hematologic disorders N Anesthesia Complications N History of STI N Deep Vein Thrombosis N Polycystic ovary syndrome Y History of abnormal pap N Endometriosis N High Cholesterol N Thyroid Problems N GI Problems N Anemia N Psychiatric Illness N Ovarian Cancer N Diabetes N Pulmonary (TB, Asthma) N Eczema N Abuse/Domestic Violence N Depression/ depression N Heart Disease N Pre-Eclampsia N Hypertension N Osteoporosis N Gynecological History Statement/Question Response Abnormal Pap [...] SNOMED-CT Code Diagnosis ICD10 Code Diagnosis Note [id number] Dale Jones MD [facility] [address] [address] 03/01/2024 13:52:48 03/01/2024 15:36:16 Routine care 311477352 Z34.02 [id number] Dale Jones MD [facility] [address],[place] [address] 03/08/2024 16:05:13 03/11/2024 07:40:49 Routine care 001748043 Z34.02 [id number] Dale Jones MD [facility] [address],[place] [address] 03/15/2024 15:47:27 03/18/2024 11:44:44 Routine care 614813978 Z34.02 [id number] GUZMAN HALL MD [facility] [address],[place] [address] 03/18/2024 15:07:11 03/18/2024 15:24:19 Routine care 100831613 Z34.83 [id number] Dale Jones MD [facility] [address],[place] [address] 03/29/2024 15:34:54 03/29/2024 17:01:01 Routine care 829119289 Z34.02 Health Concerns Section Related Observation LastModified by Organization Detai ls LastModified Time None Recorded Concern Status LastModified by Organization Details LastModified Time None Recorded Payers Encounter Date Sequence Insurance Name Policy Number Policy Maldonado Covered Member ID Maldonado Member ID Guarantor Name 03/29/2024 1 [place] [id number] J José Luis Iqbal [id number] José Luis Iqbal OBGyn Episode Ob Episode Information Episode Created Date Number of Fetuses Patient Bloodtype Patient rh Status Prepregnancy Weight lbs Domestic Partner Domestic Partner Phone Father Name Senior Managing Director Status 09/18/19 24 1 A Positive 190 Berny Iqbal OPEN Fetus Data First Name Last Name Admitted to NICU Weight (g) Sex Living Outcome Pediatric Complications Fetus ID Race Codes Race Delivery Type [id number] Problems Problem Notes 01/07 9am growth u/s 02/01 11 :15 US only scheduled [facility] 02/15 1:45 US & NST 1/17 US & NST 945AM 03/08 U/S & NST 0945 03/15 945US & NST Problem Name Start Date End Date Resolution Snomed Code Not e growth restriction 56360634 16th percentile on January 08, 2024 Group B Streptococcus carrier 7525112213856 Pneumonia 10/25/2023 814181677 Polycystic ovary syndrome 343127949 Obesity 10/16/2023 973495080 37wk week ly testing Tito Calculation Initial [...] Weight in lbs Pre/Post Dialysis Refused Weight 191.150126652290 BP Diastolic BP Location Tested BP Systolic [...] Type Weight in lbs Pre/Post Dialysis Refused 192.292543937574 BP Diastolic BP Location Tested BP Systolic [...] Type Weight in lbs Pre/Post Dialysis Refused 191.482218283055 BP Diastolic BP Location Tested BP Systolic [...] Type Weight in lbs Pre/Post Dialysis Refused 191.046682344426 BP Diastolic BP Location Tested BP Systolic [...] Type Weight in lbs Pre/Post Dialysis Refused 196.805524591922 BP Diastolic BP Location Tested BP Systolic [...] Type Weight in lbs Pre/Post Dialysis Refused 194.291149914180 BP Diastolic BP Location Tested BP Systolic [...] Type Weight in lbs Pre/Post Dialysis Refused 194.951957764819 BP Diastolic BP Location Tested BP Systolic BP Type 72 L arm 127 sitting Fetus Heart Rate Present Fetus Movement A Yes Comments no complaints, no problems, routine care, no contractions, no vaginal bleeding, no loss of fluid, no cramping growth at 7% 2 weeks ago. Reassuring testing today at [facility]. Flowsheet Date 02/23/2024 Hopkins Score Blood Edema Fundus Height Fundus Units Glucose Ketones Leukocytes Nitrite Labor Signs Protein Cervic Dilation Cervic Effacement Cervic Station Type Weight in lbs Pre/Post Dialysis Refused 194.945585317456 BP Diastolic BP Location Tested BP Systolic BP Type 72 L arm 118 sitting Fetus Heart Rate Present A 145 Fetus Movement Comments no complaints, no problems, routine care, no contractions, no vaginal bleeding, no loss of fluid, no crampingImproved growth at [facility] today Flowsheet Date 03/01/2024 Hopkins Score Blood Edema Fundus Height Fundus Units Glucose Ketones Leukocytes Nitrite Labor Signs Protein Cervic Dilation Cervic Effacement Cervic Station Type Weight in lbs Pre/Post Dialysis Refused Weight 196.274595062985 BP Diastolic BP Location Tested BP Systolic [...] Weight in lbs Pre/Post Dialysis Refused Weight 192.913443263270 BP Diastolic BP Location Tested BP Systolic [...] Type Weight in lbs Pre/Post Dialysis Refused 192.281491881472 BP Diastolic BP Location Tested BP Systolic [...] Weight in lbs Pre/Post Dialysis Refused Weight 195.088249392267 BP Diastolic BP Location Tested BP Systolic BP Type 73 L arm 116 sitting Fetus Heart Rate Present A 130 Fetus Movement A Yes Comments Patient c/o Pitt Mak. G ood movement. No bleeding. EIL 03/30. Labor precautions reviewed. RTC 1 week. Flowsheet Date 03/29/2024 Hopkins Score Blood Edema Fundus Height Fundus Units Glucose Ketones Leukocytes Nitrite Labor Signs Protein Cervic Dilation Cervic Effacement Cervic Station 3cm Type Weight in lbs Pre/Post Dialysis Refused 193.67838649259 BP Diastolic BP Location Tested BP Systolic [...] Estim ated Date of Delivery false Thalassemia (Belgian, Bruneian, Mediterranean, Or Background): MCV < 80 false Neural Tube Defect (Meningomyelocele, Spina Bifi da, Or Anencephaly) false Congenital Heart Defect false Down Syndrome false Sacha-Sachs (eg, Evangelical, Cajun, Icelandic-Florence) f alse Lucius Disease false Sickle Cell Disease Or Trait () false Hemophilia Or Other Blood Disorders false Muscular Dystrophy false Cystic Fibrosis false Hanna's Chorea false Intellectual Disability/Autism false If Yes, [...]
--- NOTE | 2024-03-30 05:27 | LDADM ---
This patient, José Luis Iqbal, was admitted to Labor/Delivery/Recovery 104 on 03/30/24 at 04:57. Plans for labor, pain management and were discussed with patient. Patient/family oriented to hospital policies and general routines including ID bracelet, bed and alarms, visiting hours, pain management, procedures, bathroom and other care routines, personal items, smoking policy, room service/diet and guest tray routines, infant security routines, and visiting hours. Patient/Family are encouraged to report perceived risks to care and to ask questions if they do not understand what they are told or what they should do. See OBIX for further documentation.
[2024-03-30] MEDS: AMPICILLIN 2 GM/NS 100 ML 2 GM/100 ML BAG IVPB (05:33)
[2024-03-30] MEDS: LACTATED RINGERS 1,000 ML 125 ML IV CONT ×2 (05:33→08:54)
[2024-03-30 05:45] LABS: Basophils Percent Auto 0.4 % (0.2-1.2); Eosinophils Absolute Auto 0.2 K/mm3 (0-0.3); Hematocrit 31.1 % (37.0-47.0); Immature Granulocyte Absolute 0.03 K/mm3 (0.00-0.031); Immature Granulocyte Percent A 0.4 % (0-0.5); Lymphocytes Absolute Auto 1.98 K/mm3 (0.9-3.2); Lymphocytes Percent Auto 23.5 % (18.3-44.2); Mean Corpuscular HGB Conc 32.2 g/dl (32-36); Mean Corpuscular Hemoglobin 29.2 pg (26-34); Mean Corpuscular Volume 90.7 fl (80-100); Monocytes Absolute Auto 0.8 K/mm3 (0.1-0.6); Monocytes Percent Auto 9.6 % (2.6-8.5); Neutrophils Absolute Auto 5.4 K/mm3 (1.3-6.7); Neutrophils Percent Auto 64.1 % (45.5-73.1); Platelet Count Result 188 k/mm3 (150-375); Red Blood Count 3.43 M/mm3 (4.2-5.4); Red Cell Distribution Width 14.8 % (11.5-14.5); White Blood Count 8.4 K/mm3 (4.5-10.0)
[2024-03-30] MEDS: OXYTOCIN 30 UNITS/NS 500 ML 30 UNITS/500 ML BAG IV CONT (05:53)
[2024-03-30 06:35] LABS: HIV 1/2 Ab P24 Ag Result Negative (Negative)
[2024-03-30 06:42] LABS: Syphilis IgG/IgM Antibody Negative (Negative)
--- NOTE | 2024-03-30 08:15 | WPDHPUPDATE1 ---
History and Physical Update Update Date/Time: 03/30/24 08:15 23-year-old female, multiparous, at term. 3 cm, 80%, -2, artificial rupture membranes performed, active management of labor with Pitocin at this time. Reassuring heart tones. History and Physical has been reviewed, including an updated exam of the patient. There are NO changes in the patient's condition. Risks, benefits, and alternatives have been discussed and questions answered. Patient agrees to proceed with procedure.
--- NOTE | 2024-03-30 08:57 | P.PNAN_ITS ---
Anes - Initial Pre Proc Eval Date/Time: 03/30/24 08:57 Surgeon: Dale Shepard MD Pre Op Diagnosis: IOL Patient Data Age: 23 Gender: F Height: 1.52 m Weight: 88 kg Last Vital Signs Temp 36.9 C 03/30/24 08:52 Pulse 91 03/30/24 08:55 BP 129/55 L 03/30/24 08:55 Pulse Ox 99 03/30/24 08:52 Allergies Allergy/AdvReac Type Severity Reaction Status Date / Time No Known Allergies Allergy Verified 03/05/24 09:01 Home Medications ?Medication ?Instructions ?Recorded ?Confirmed ?Type cetirizine 10 mg tablet (Zyrtec) 10 mg PO DAILY 08/04/22 10/25/23 History prenat.vits,vincent,fxh-ojry-vzvwa 1 tablet PO DAILY 08/04/22 10/25/23 History vit no.95-ferrous 1 tablet PO DAILY 03/04/24 03/04/24 History fumarate 28 mg-folic acid 800 mcg tablet () Laboratory Tests 03/30/24 05:16 WBC 8.4 K/mm3 (4.5-10.0) RBC 3.43 L M/mm3 (4.2-5.4) Hgb 10.0 L g/dL (12.0-15.0) Hct 31.1 L % (37.0-47.0) MCV 90.7 fl (80-100) MCH 29.2 pg (26-34) MCHC 32.2 g/dl (32-36) RDW 14.8 H % (11.5-14.5) Plt Count 188 k/mm3 (150-375) MPV 12.0 H fl (7.4-10.4) Immature Gran % (Auto) 0.4 % (0-0.5) Neut % (Auto) 64.1 % (45.5-73.1) Lymph % (Auto) 23.5 % (18.3-44.2) Dickson % (Auto) 9.6 H % (2.6-8.5) Eos % (Auto) 2.0 % (0-4.4) Baso % (Auto) 0.4 % (0.2-1.2) Lymph # (Auto) 1.98 K/mm3 (0.9-3.2) Dickson # (Auto) 0.8 H K/mm3 (0.1-0.6) Eos # (Auto) 0.2 K/mm3 (0-0.3) Baso # (Auto) 0.0 K/mm3 (0.0-0.1) Abs Immat Gran (auto) 0.03 K/mm3 (0.00-0.031) Absolute Neuts (auto) 5.4 K/mm3 (1.3-6.7) Absolute Nucleated RBC 0.000 K/mm3 (0.0-0.012) Nucleated RBC % 0.0 % (0.0-0.2) Syphilis IgG/IgM Ab Negative (Negative) RPR Titer Cancelled RPR Cancelled RPR Titer Add Testing Cancelled T.pallidum Ab (FTA-ABS) Cancelled T.pall Ab(FTA-ABS)Reflex Cancelled HIV 1&2 Ab/P24 Ag 4thGn Negative (Negative) Blood Type A Positive Antibody Screen Negative Patient hx anesthesia problems: none Family hx anesthesia problems: none Results Review: All pre-operative results and documents have been reviewed as part of the pre- operative evaluation. [facility] Family History Family History Father Hypertension Sleep apnea Social History Social History Smoking status: Never smoker Second hand tobacco smoke exposure: No Alcohol intake: never Substance use: never Substance use type: does not use Do You Feel Safe in your Home?: Yes Lack of Transportation: No Lack of Food: Never True Current Housing: I Have Housing Concerned About Future Housing: No Difficulty Paying Gas/Electric Bills: No Difficulty Paying for Meds: No Currently Unemployed: No Education: High School Diploma/GED Difficulty w/ Childcare or Family Care: No Spiritual care concerns: No Anes - Eval Final PreProcedure Day of Procedure 03/30/24 08:57 Patient weight: obese Neurological: alert and oriented ASA classification: II Emergent: no Anesthetic plan: proceed Anesthesia type and monitoring: regional epidural and standard monitoring Results Review: All pre-operative results and documents have been reviewed as part of the pre- operative evaluation. Informed Consent: The patient's anesthetic plan and its attendant risks and benefits were discussed with the patient/family/POA. Questions were solicited and answers provided to the satisfaction of the patient/family/POA.
[2024-03-30] MEDS: AMPICILLIN 1 GM/NS 50 ML 1 GM/50 ML BAG IVPB (09:24)
--- NOTE | 2024-03-30 11:24 | P.PCNOB_ITS ---
OB - Vaginal Delivery Note Procedure Delivery date: 03/30/24 Induction method: AROM and Per Pitocin Protocol Delivery monitor: External FHT and External Uterine Route of delivery: Episiotomy description: None Laceration Description: Perineal - 2nd Degree Delivery repair: vicryl Specimen: No Quantitative Blood Loss (ml): 200 Anesthesia type: Epidural Disposition: Floor Complications: No immediate complications Crucible Baby Date of : 03/30/24
[2024-03-30] MEDS: OXYTOCIN 30 UNITS/NS 500 ML 30 UNITS/500 ML BAG 125 UNITS IV CONT (11:33)
[2024-03-30] MEDS: IBUPROFEN 600 MG TABLET PO (14:36)
[2024-03-30] MEDS: DOCUSATE SODIUM 100 MG CAPSULE PO (14:36)
--- NOTE | 2024-03-30 14:57 | OBPPTRN ---
Patient transferred to post room #287 via (wheelchair). Support person present. Oriented to unit, room, information board, rooming in, admission packet and security measures. Patient verbalizes understanding.
--- NOTE | 2024-03-30 15:35 | PC.NURSE ---
4111- Met with patient to assist with . Mom did breastfeed her last baby initially but had latch issues with painful nipples and went to bottle feeding breastmilk at day 5 . She states that baby wouldn't drink her milk from a bottle and so they switched to formula and he did fine with that. She does state that she really wants to breastfeed this baby and her goal is exclusive at breast feeding. Baby gave a few sleepy attempts to latch but did open wide enough to get the nipple in her mouth. We changed positions and tried to latch again but baby ceased rooting or gaping. Mom is going to keep baby skin to skin and attempt again in 30-60 minutes. Infant is getting preprandial blood glucose monitoring due to SGA and her level was WNL at this time. Reported to primary RN. 1903- Checked in with parents to see if baby was more awake and ready to feed. Mom already had her latched in cross cradle on the right breast. The latch looked appropriate but mom stated that it was pinching. Mom was shown how to break the suction and remove baby from the breast. Baby was then eager to latch again and mom said the pain was worse. We broke latch again and relatched with a breast bite and baby appeared to have an optimal latch with no lip rolling. She was consistently suckling with swallowing noted. Mom educated on watching for nutritive vs nonnutritive sucking. Mom states that after the initial latch on the pinching was diminished but still there. Her nipple did appear smashed when baby came off the breast. The skin was intact but reddened. Discussed with mom the possibility of the initial latch on causing some rubbing and that she may feel tender at subsequent feedings. Mom will call for assistance switching sides if needed. Reported to primary RN.
[2024-03-31 04:00] VITALS: BP 102/64; PULSE 75; RESP 18; TEMP 36.6; O2SAT 97
[2024-03-31 05:27] LABS: Hematocrit 30.1 % (37.0-47.0); Hemoglobin 9.5 g/dL (12.0-15.0)
[2024-03-31 07:00] VITALS: BP 115/75; PULSE 70; RESP 18; TEMP 36.4; O2SAT 97
[2024-03-31] MEDS: POLYSACCHARIDE IRON COMPLEX 150 MG CAPSULE PO ×2 (07:01→15:59)
[2024-03-31] MEDS: DOCUSATE SODIUM 100 MG CAPSULE PO (07:01)
[2024-03-31] MEDS: MULTIVIT/MIN/PREN/FOL AC/IRON TABLET 1 TAB PO (07:01)
--- NOTE | 2024-03-31 09:10 | P.PNOB_ITS ---
OB - PN: Subj Subjective Date/time seen: 03/31/24 09:10 Interval history: pp day 1 doing well baby being treated for blood sugars OB - PN: Obj Data Labs 03/31/24 05:15 Labs: Laboratory Results - last 24 hr 03/31/24 05:15 Hgb 9.5 L Hct 30.1 L OB - PN A/P Plan day: 1 Plan: routine care and discharge home Time Spent With Patient Time: Total time spent is greater than 50% in coordination of care (as documented) at patient's floor/unit and/or counseling patient: Review of Systems 2 Review of Systems: All systems reviewed & are unremarkable except as noted in HPI and below Exam 2 Const: General: cooperative, healthy appearing and comfortable Chest: Chest palpation & inspection: normal inspection of the chest Resp: Effort & Inspection: normal respiratory effort Cardio: Rate: regular rate GI: Other: soft Back/Spine/Pelvis: Back: no CVA tenderness Skin: General skin exam: normal color Neuro: General: patient oriented x3
--- NOTE | 2024-03-31 09:12 | P.DS_ITS ---
DS: Admitting Diagnosis Discharge Date 03/31/24 Admitting Diagnosis IOL DS: Discharge Diagnosis Discharge Diagnosis (1) Vaginal delivery: Code(s): O80 - Encounter for full-term uncomplicated delivery Status: Acute OB - DS: Summary OB Procedures : None OB Procedures Intrapartum: Spontaneous Vag Delivery OB Procedures: : None Peripartum Data Laceration Description: Perineal - 2nd Degree Episiotomy description: None Time Spent with Patient Time attestation: Total time spent providing and/or coordinating discharge services: DS: Data Data Completed and Pending Labs on day of discharge: Labs from last 24 hours 03/31/24 05:15 Hgb 9.5 L Hct 30.1 L Discharge Plan Discharge Attending physician on discharge: Dale Shepard Discharging Clinician: Maile Villa Activity: pelvic rest Diet: regular Patient Language: Portuguese Discharge Medications: Continued cetirizine [Zyrtec] 10 mg Tablet 10 mg PO DAILY prenat.vits,vincent,[id number] Tablet 1 tablet PO DAILY PNV cmb#95-ferrous fumarate-FA [] 28 mg iron- 800 mcg tablet 1 tablet PO DAILY Date of admission: 03/30/24 04:57 Primary Care Provider: PHYSICIAN,CUSTOMS APPRAISER Admitting Provider: Dale Shepard Attending physician on admission: Dale Shepard Condition: Stable
[2024-03-31] MEDS: BENZOCAINE 20% AER SPR (*SP) 56 GM CAN 1 SPRAY TOPICAL (16:01)
[2024-03-31] MEDS: IBUPROFEN 600 MG TABLET PO (16:01)
[2024-03-31] MEDS: WITCH HAZEL 40 PADS 1 PAD TOPICAL (16:02)
--- NOTE | 2024-03-31 16:11 | WPDANLDPN2 ---
Anes-Prog Note L&D Date/Time: 03/31/24 16:11 Comfortable throughout: labor and delivery Neuraxial method: epidural Epidural/Spinal procedure site: clean & non-tender Neuro status: Neuro function grossly intact. Cardiovascular status: normal Respiratory status: normal Airway patency: baseline Mental status: baseline Post-Op hydration status: normal Vital Signs: Last Vital Signs Temp 97.6 F 03/31/24 07:00 Pulse 70 03/31/24 07:00 Resp 18 03/31/24 07:00 BP 115/75 03/31/24 07:00 Pulse Ox 97 03/31/24 07:00 O2 Del Method Room Air 03/31/24 07:00 Pain score (VAS): 0 Patient feedback: Patient satisfied with anesthetic care.
[2024-03-31 20:32] VITALS: BP 100/60; PULSE 65; RESP 18; TEMP 36.4; O2SAT 97
[2024-04-01] MEDS: MULTIVIT/MIN/PREN/FOL AC/IRON TABLET 1 TAB PO ×2 (06:47→06:48)
[2024-04-01] MEDS: IBUPROFEN 600 MG TABLET PO (06:47)
[2024-04-01] MEDS: POLYSACCHARIDE IRON COMPLEX 150 MG CAPSULE PO (06:49)
[2024-04-01 07:00] VITALS: BP 104/65; PULSE 70; RESP 18; TEMP 36.8; O2SAT 98
--- NOTE | 2024-04-01 08:28 | P.PNOB_ITS ---
OB - PN: Subj Subjective Date/time seen: 04/01/24 08:28 Interval history: pp day 1 doing well baby being treated for blood sugars Patient comments: no complaints, pain well controlled and tolerating diet OB - PN: Obj Data Labs 03/31/24 05:15 OB - PN A/P Plan day: 2 Plan: routine care and discharge home Time Spent With Patient Time: Total time spent is greater than 50% in coordination of care (as documented) at patient's floor/unit and/or counseling patient: Exam 2 Const: General: comfortable and no acute distress Resp: Effort & Inspection: normal respiratory effort Auscultation: no rales, no rhonchi and no wheezes Cardio: Rate: regular rate Heart sounds: no click, no murmurs and no rubs GI: GI Palp: Yes Soft to palpation and No Tenderness to palpation present (GI) Auscultation: normal bowel sounds Extrem: General: normal to inspection, no pedal edema and no calf tenderness
--- NOTE | 2024-04-01 08:29 | P.DS_ITS ---
DS: Admitting Diagnosis Discharge Date 04/01/2024 Admitting Diagnosis term DS: Discharge Diagnosis Discharge Diagnosis (1) Term delivered: Code(s): O80 - Encounter for full-term uncomplicated delivery Status: Acute OB - DS: Summary OB Procedures : None OB Procedures Intrapartum: Spontaneous Vag Delivery OB Procedures: : None Peripartum Data Laceration Description: Perineal - 2nd Degree Episiotomy description: None Time Spent with Patient Time attestation: Total time spent providing and/or coordinating discharge services: Discharge Plan Discharge Attending physician on discharge: Dale Shepard Discharging Clinician: Maile Villa Patient Disposition: Home, Self-Care Activity: pelvic rest Diet: regular Patient Instructions: Antibiotic Form Patient Language: Palauan Stand Alone Forms: General Discharge Information Follow-up/Referrals: Dale Shepard MD [Physician] - Discharge Medications: Continued cetirizine [Zyrtec] 10 mg Tablet 10 mg PO DAILY prenat.vits,vincent,[id number]-znezm Tablet 1 tablet PO DAILY PNV cmb#95-ferrous fumarate-FA [] 28 mg iron- 800 mcg tablet 1 tablet PO DAILY Date of admission: 03/30/24 04:57 Primary Care Provider: PHYSICIAN,IT PROGRAM AUDITOR Admitting Provider: Dale Shepard Attending physician on admission: Dale Shepard Condition: Stable
--- NOTE | 2024-04-01 10:10 | PC.NURSE ---
Consulted with mother concerning needs and she shared her ability to independently latch infant. Her nipples are red and tender. Baby was cluster feeding overnight. Mom educated that if her nipples crack, bleed, or get worse she should have the latch assessed. Mother is feeding appropriately for growth of and understands stimulating to eat if needed. has had appropriate feedings in the last 24 hours meets the outcomes for weight, output, blood sugar and jaundice at this time. Reinforced understanding of milk production, transition of milk, signs of adequate intake, transition of stool, prevention/relief of engorgement, plugged ducts, mastitis, responsive watching for feeding cues, the different methods of stimulating infant to breastfeed 1-3 hours after the start of the last feeding, community resources, and when to call a provider using the resource of the feeding sheet along with the mom and baby guide. Mother voiced understanding of the information shared, is confident to continue effectively her at home, when to call for assistance, denies any additional assistance or education at this time. Reported to the Primary RN.
[2024-04-02 09:09] VITALS: BP 118/72; PULSE 71; RESP 18; TEMP 36.4; O2SAT 99
== END 2024-04-01 10:42 | disposition home or self-care (01) | DRG 807 ==
LOC: ANHLDR 05:00 → ANHOB2 13:56
PROVIDERS: Admitting Provider Obstetrics & Gynecology; Visit Provider Obstetrics & Gynecology
DX: O99.824 Streptococcus B carrier state complicating childbirth (principal); Z37.0 Single live birth; O70.1 Second degree perineal laceration during delivery; Z3A.40 40 weeks gestation of pregnancy
CPT/HCPCS: 36415; 85014; 85018; 85025; 86592; 86593; 86703; 86850; 86900; 86901; A9270; G0432; J0290; J2590; J2795; J7120